=== PATIENT | female | born 1995 | race Caucasian/White ===

== ENCOUNTER 2020-11-06 06:40 | Emergency (ER) | payer BC, SELFPAY ==
[2020-11-06 06:48] VITALS: BP 120/75; PULSE 89; RESP 18; TEMP 36.9; O2SAT 97
[2020-11-06 08:08] LABS: Anion Gap 12 mmol/L (8-16); Blood Urea Nitrogen 7 mg/dL (7-17); Calcium 8.4 mg/dL (8.4-10.2); Carbon Dioxide 26 mmol/L (22-30); Chloride 103 mmol/L (98-107); Estimated CRCL calculation 138 ml/min; Estimated Glomerular Filt Rate > 60; Glucose 95 mg/dL (65-110); Magnesium 2.1 mg/dL (1.6-2.3); Potassium 3.8 mmol/L (3.4-5.0); Sodium 141 mmol/L (137-145)
--- NOTE | 2020-11-06 08:33 | ED.GENADULT ---
HPI - General Adult General Chief complaint: Unspecified Stated complaint: toes numb/ covid + Time Seen by Provider: 11/06/20 07:06 History of Present Illness HPI narrative: Patient is a 25-year-old female who presents ER with paresthesias to her right shoulder and the toes of her left foot. Ongoing since waking up this morning. Reports she got out of bed and felt wobbly for 6 steps but has been normal since then. She reports she has had Covid symptoms for 10 days but was just tested 5 days ago. No longer having fevers or chills. She does still have a cough. No difficulty breathing. She has no functional weakness or dizziness. Related Data Allergies Allergy/AdvReac Type Severity Reaction Status Date / Time Sulfa (Sulfonamide Allergy Hives Verified 11/06/20 06:59 Antibiotics) Review of Systems Review of Systems: All systems reviewed & are unremarkable except as noted in HPI and below Constitutional: Constitutional: Denies chills, Denies fever(s) and Denies malaise ENT: Denies nasal congestion and Denies sore throat Respiratory: Respiratory: Reports cough, Denies dyspnea and Denies wheezing Musculoskeletal: Musculoskeletal: Denies arthralgias, Denies muscle cramps, Denies muscle weakness and Reports tingling PMFSH Past Medical History Medical History (Updated 11/06/20 @ 09:14 by Endy Lopez MD) Healthy female adult Surgical History Surgical History (Updated 11/06/20 @ 09:09 by Endy Lopez MD) No history of previous surgery Social History Social History (Updated 11/06/20 @ 09:09 by Endy Lopez MD) Smoking status: Never smoker Exam Narrative: GENERAL: Well-appearing, well-nourished, and in no acute distress. HEAD: Normocephalic, atraumatic. CHEST: Clear to auscultation. No respiratory distress. HEART: Regular rate and rhythm. Normal peripheral pulses. EXTREMITIES: Normal range of motion. No edema. 5 out of 5 strength in upper and lower extremities. Back: No reproducible midline tenderness of the C/T/L-spine. No reproducible paraspinal muscular tenderness. SKIN: Warm, dry, no rash. NEURO: Alert and oriented x3. Normal reflexes in lower extremities. Sharp sensation intact throughout upper and lower extremities. PSYCH: Normal mood and affect. Course Course Emergency Course: No discernible neurologic deficit or muscle weakness. Will treat with anti-inflammatories. Recommend follow-up with PCP. Vital Signs Vital signs: Vital Signs Temperature 98.4 F 11/06/20 06:48 Pulse Rate 89 11/06/20 06:48 Respiratory Rate 18 11/06/20 06:48 Blood Pressure 120/75 11/06/20 06:48 Pulse Oximetry 97 11/06/20 06:48 Temperature 98.4 F 11/06/20 06:48 Pulse Rate 89 11/06/20 06:48 Respiratory Rate 18 11/06/20 06:48 Blood Pressure 120/75 11/06/20 06:48 Pulse Oximetry 97 11/06/20 06:48 Medical Decision Making Vital Signs Vital Signs: Vital Signs Temperature 98.4 F 11/06/20 06:48 Pulse Rate 89 11/06/20 06:48 Respiratory Rate 18 11/06/20 06:48 Blood Pressure 120/75 11/06/20 06:48 Pulse Oximetry 97 11/06/20 06:48 Temperature 98.4 F 11/06/20 06:48 Pulse Rate 89 11/06/20 06:48 Respiratory Rate 18 11/06/20 06:48 Blood Pressure 120/75 11/06/20 06:48 Pulse Oximetry 97 11/06/20 06:48 Lab Data Result diagrams: 11/06/20 07:47 Labs: Lab Results 11/06/20 Range/Units 07:47 Sodium 141 (137-145) mmol/L Potassium 3.8 (3.4-5.0) mmol/L Chloride 103 (98-107) mmol/L Carbon Dioxide 26 (22-30) mmol/L Anion Gap 12 (8-16) mmol/L BUN 7 (7-17) mg/dL Creatinine 0.60 L (0.7-1.0) mg/dL Estim Creat Clear Calc 138 ml/min Estimated GFR > 60 (59 - ) Glucose 95 (65-110) mg/dL Calcium 8.4 (8.4-10.2) mg/dL Magnesium 2.1 (1.6-2.3) mg/dL Discharge Plan Discharge Clinical Impression: Paresthesia Patient Disposition: Home, Self-Care Condition: Stable Instructions:
== END 2020-11-06 09:42 | disposition home or self-care (01) ==
PROVIDERS: Emergency Provider Emergency Medicine
DX: R20.2 Paresthesia of skin (principal)
CPT/HCPCS: 36415; 80048; 83735; 99283

== ENCOUNTER 2022-04-07 11:17 | Outpatient (CLI) | payer BC, SELFPAY | END 2022-04-07 11:18 | disposition home or self-care (01) | LOC: ANHLAB 11:18 | PROVIDERS: Visit Provider Obstetrics & Gynecology | DX: O20.0 Threatened abortion (principal) | CPT/HCPCS: 36415; 84702 ==

== ENCOUNTER 2022-04-09 10:47 | Outpatient (CLI) | payer BC, SELFPAY | END 2022-04-09 10:48 | disposition home or self-care (01) | PROVIDERS: Visit Provider Obstetrics & Gynecology | DX: O20.0 Threatened abortion (principal) | CPT/HCPCS: 36415; 84702 ==

== ENCOUNTER 2022-05-05 10:37 | Outpatient (CLI) | payer BC, SELFPAY ==
[2022-05-05 11:57] LABS: Basophils Percent Auto 0.6 % (0.2-1.2); Eosinophils Absolute Auto 0.1 K/mm3 (0-0.3); Eosinophils Percent Auto 2.1 % (0-4.4); Hematocrit 41.5 % (37.0-47.0); Immature Granulocyte Absolute 0.02 K/mm3 (0.00-0.031); Immature Granulocyte Percent A 0.3 % (0-0.5); Lymphocytes Absolute Auto 2.02 K/mm3 (0.9-3.2); Lymphocytes Percent Auto 29.8 % (18.3-44.2); Mean Corpuscular HGB Conc 33.7 g/dl (32-36); Mean Corpuscular Hemoglobin 28.9 pg (26-34); Mean Corpuscular Volume 85.6 fl (80-100); Mean Platelet Volume 10.6 fl (7.4-10.4); Monocytes Absolute Auto 0.4 K/mm3 (0.1-0.6); Monocytes Percent Auto 5.9 % (2.6-8.5); Neutrophils Absolute Auto 4.2 K/mm3 (1.3-6.7); Neutrophils Percent Auto 61.3 % (45.5-73.1); Platelet Count Result 212 k/mm3 (150-375); Red Blood Count 4.85 M/mm3 (4.2-5.4); Red Cell Distribution Width 12.8 % (11.5-14.5); White Blood Count 6.8 K/mm3 (4.5-10.0)
[2022-05-05 12:24] LABS: Glucose 1 Hour PP 50gm Dose 138 mg/dL
[2022-05-05 12:49] LABS: HIV 1/2 Ab P24 Ag Result Negative (Negative)
[2022-05-05 13:16] LABS: Hepatitis B Surface Antigen Negative (Negative)
[2022-05-06 06:35] LABS: Rapid Plasma Reagin Non-Reactive (NonReactive)
[2022-05-08 14:32] LABS: CMV IgG Antibody <0.60 U/mL (<0.60)
[2022-05-14 16:03] LABS: CF Result NEGATIVE (NEGATIVE); Ethnicity W
[2022-05-16 12:13] LABS: SMA 2.0 RISK VARIANT NOT DETECTED
[2022-05-16 13:16] LABS: SMA Results Received Yes
== END 2022-05-05 10:38 | disposition home or self-care (01) ==
LOC: ANHLAB 10:38
PROVIDERS: Visit Provider Student in an Organized Health Care Education/Training Program
DX: N94.89 Other specified conditions associated with female genital organs and menstrual cycle (principal)
CPT/HCPCS: 36415; 81220; 81329; 82947; 84702; 85025; 86592; 86644; 86703; 86747; 86762; 86787; 86850; 86900; 86901; 87086; 87340; G0432

== ENCOUNTER 2022-05-14 08:23 | Emergency (ER) | payer BC, SELFPAY ==
--- NOTE | ~2022-05-14 | US_ITS ---
US OB <=14 wk fetus w TV DATE: 05/14/2022 09:49 INDICATION: Vaginal bleeding TECHNIQUE: Real-time imaging and Doppler analysis COMPARISON: 05/05/2022 obstetrical ultrasound FINDINGS: The uterus measures 11.1 cm height, 7 cm transverse and 5.8 cm anteroposterior dimension. L glenis cai intrauterine gestation. Subjectively normal amount of amniotic fluid. Posterior placent a. Fetus in transverse lie. heart rate of 155 bpm. No retroplacental hematoma or subchorionic hemorrhage is evident. Right ovary measures 2.9 x 2.3 x 1.4 cm. Left ovary measures 2.4 x 2.6 x 1.8 cm. No pelvic mass or abnormal pelvic free fluid collection is detected. IMPRESSION: No abruption or subchorionic hematoma is detected Reviewed, dictated and finalized at [facility]. Reviewed, dictated and finalized at [facility].
[2022-05-14 08:28] VITALS: BP 147/89; PULSE 106; RESP 18; TEMP 36.6; O2SAT 99
--- NOTE | 2022-05-14 08:46 | ED.PREGNANCY ---
HPI - General Chief complaint: Vaginal Bleeding Stated complaint: 11 weeks preg/vb Time Seen by Provider: 05/14/22 08:46 Source: patient, RN notes reviewed and old records reviewed Mode of arrival: ambulatory Limitations: no limitations History of Present Illness HPI Narrative: This is a 26 year old female 11 weeks GA who presents for evaluation of vaginal bleeding. PAtient states she has been having vaginal spotting off and on since her 5th week GA. She has had 2 US and her last US was over 1 week ago. She woke up this morning with heaving vaginal bleeding and passed small clot. She denies abdominal pain, cramping, UTI symptoms or fever. Her OB is Dr. Arias but she has been seeing Dr. Redd and Magda Related Data Home Medications Medication Instructions Recorded Confirmed No Home Medications 12/05/21 12/05/21 Allergies Allergy/AdvReac Type Severity Reaction Status Date / Time Sulfa (Sulfonamide Allergy Hives Verified 04/28/22 09:31 Antibiotics) Review of Systems Review of Systems: All systems reviewed & are unremarkable except as noted in HPI and below Constitutional: Constitutional: Denies weakness Cardiovascular: Cardiovascular: Denies syncope, Denies rapid heart rate, Denies irregular heart rhythm, Denies leg edema and Denies dyspnea Respiratory: Respiratory: Denies chest congestion, Denies hemoptysis, Denies excessive phlegm production and Denies dyspnea Gastrointestinal: Gastrointestinal: Denies abdominal pain, Denies hematochezia, Denies diarrhea and Denies vomiting Genitourinary: Genitourinary: Reports abnormal vaginal bleeding, Denies hematuria and Denies dysuria Musculoskeletal: Musculoskeletal: Denies joint swelling, Denies loss of height and Denies muscle weakness Neurologic: Denies syncope, Denies focal weakness and Denies weakness [facility] Past Medical History Medical History (Updated 05/14/22 @ 16:19 by Arielle Sevilla MA) Blood glucose abnormal Encounter for insertion of mirena IUD (11/04/17) 2018 Encounter for IUD removal (12/05/21) 12/05/2021 Healthy female adult Suppression of menses Surgical History Surgical History No history of previous surgery Social History Social History Smoking status: Never smoker Alcohol intake: never Substance use: never Living arrangements: with family 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/Education: 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 Gender identity (if verbalized by the patient): Female Sexual Orientation (if Verbalized by the Patient): Straight or Heterosexual Exam Const: General: no acute distress and alert Nutritional Appearance: well nourished Orientation/consciousness: patient oriented x3 Limitations: no limitations Eyes: EOM: EOMs intact bilaterally Resp: Effort & Inspection: normal respiratory effort Auscultation: clear to auscultation bilaterally Cardio: Rate: regular rate Rhythm: regular rhythm Heart sounds: no murmurs GI: GI Palp: Yes Soft to palpation, No Tenderness to palpation present (GI), No Guarding due to palpation present (GI) and No Rigid due to palpation Auscultation: normal bowel sounds : Speculum Exam - Vagina: vaginal bleeding (no clots) Speculum Exam - Cervix: Cervical os closed Back/Spine/Pelvis: Back: no CVA tenderness Skin: General skin exam: normal color Rashes: no rashes Wounds: no wounds Neuro: General: patient oriented x3, moves all extremities and CN's II-XI intact bilaterally Extrem: General: normal to inspection Psych: Mental Status: mental status grossly normal Affect: normal affect Attitude: cooperative Course Reevaluation(s) Reevaluation #1: Patient reports her bleeding has decreased. I Discussed US results. Discharge plan with pelvic rest and follow up . She has appointment on May 26 Date: 05/14/22 Time: 10:49 Vital Signs Maria C
[2022-05-14 09:06] VITALS: PULSE 94; RESP 19; O2SAT 98
[2022-05-14 09:06] LABS: Basophils Percent Auto 0.6 % (0.2-1.2); Eosinophils Absolute Auto 0.1 K/mm3 (0-0.3); Eosinophils Percent Auto 1.6 % (0-4.4); Hematocrit 38.8 % (37.0-47.0); Hemoglobin 13.4 g/dL (12.0-15.0); Immature Granulocyte Absolute 0.03 K/mm3 (0.00-0.031); Immature Granulocyte Percent A 0.4 % (0-0.5); Lymphocytes Absolute Auto 1.67 K/mm3 (0.9-3.2); Mean Corpuscular HGB Conc 34.5 g/dl (32-36); Mean Corpuscular Hemoglobin 28.5 pg (26-34); Mean Corpuscular Volume 82.4 fl (80-100); Mean Platelet Volume 10.7 fl (7.4-10.4); Monocytes Absolute Auto 0.4 K/mm3 (0.1-0.6); Monocytes Percent Auto 5.3 % (2.6-8.5); Neutrophils Absolute Auto 4.8 K/mm3 (1.3-6.7); Neutrophils Percent Auto 68.1 % (45.5-73.1); Platelet Count Result 193 k/mm3 (150-375); Red Blood Count 4.71 M/mm3 (4.2-5.4); Red Cell Distribution Width 12.6 % (11.5-14.5)
[2022-05-14 10:32] VITALS: BP 118/67
[2022-05-14 10:33] VITALS: BP 113/77
[2022-05-14 10:34] VITALS: BP 124/86
[2022-05-14 11:00] VITALS: BP 120/97; PULSE 84; RESP 15; TEMP 36.6; O2SAT 97
== END 2022-05-14 11:02 | disposition home or self-care (01) ==
PROVIDERS: Emergency Provider General Practice; PCP Obstetrics & Gynecology
DX: O46.91 Antepartum hemorrhage, unspecified, first trimester (principal); Z3A.11 11 weeks gestation of pregnancy
CPT/HCPCS: 36415; 76801; 76817; 84702; 85025; 85461; 86850; 86900; 86901; 99284

== ENCOUNTER 2022-05-19 07:26 | Outpatient (CLI) | payer BC, SELFPAY ==
[2022-05-19 08:07] LABS: Glucose Fasting Gestational 95 mg/dL (>/=95)
[2022-05-19 11:44] LABS: Glucose 1 Hour Gest 135 mg/dL (>/=180)
[2022-05-19 11:46] LABS: Glucose 2 Hour Gest 119 mg/dL (>/= 155)
[2022-05-19 11:50] LABS: Glucose 3 Hour Gest 71 mg/dL (>/=140)
== END 2022-05-19 07:27 | disposition home or self-care (01) ==
LOC: ANHLAB 07:27
PROVIDERS: PCP Obstetrics & Gynecology; Visit Provider Student in an Organized Health Care Education/Training Program
DX: R73.09 Other abnormal glucose (principal)
CPT/HCPCS: 36415; 82951; 82952

== ENCOUNTER 2022-09-17 09:01 | Outpatient (CLI) | payer BC, SELFPAY ==
[2022-09-17 10:27] LABS: Basophils Absolute Auto 0.1 K/mm3 (0.0-0.1); Basophils Percent Auto 0.6 % (0.2-1.2); Eosinophils Absolute Auto 0.2 K/mm3 (0-0.3); Eosinophils Percent Auto 2.1 % (0-4.4); Hematocrit 35.8 % (37.0-47.0); Hemoglobin 11.9 g/dL (12.0-15.0); Immature Granulocyte Absolute 0.04 K/mm3 (0.00-0.031); Immature Granulocyte Percent A 0.5 % (0-0.5); Lymphocytes Absolute Auto 1.75 K/mm3 (0.9-3.2); Mean Corpuscular HGB Conc 33.2 g/dl (32-36); Mean Corpuscular Hemoglobin 28.5 pg (26-34); Mean Corpuscular Volume 85.6 fl (80-100); Mean Platelet Volume 11.5 fl (7.4-10.4); Monocytes Absolute Auto 0.4 K/mm3 (0.1-0.6); Monocytes Percent Auto 4.6 % (2.6-8.5); Neutrophils Absolute Auto 6.4 K/mm3 (1.3-6.7); Neutrophils Percent Auto 72.2 % (45.5-73.1); Platelet Count Result 193 k/mm3 (150-375); Red Blood Count 4.18 M/mm3 (4.2-5.4); Red Cell Distribution Width 13.9 % (11.5-14.5); White Blood Count 8.8 K/mm3 (4.5-10.0)
[2022-09-17 10:36] LABS: Glucose 1 Hour PP 50gm Dose 132 mg/dL
[2022-09-17 11:17] LABS: HIV 1/2 Ab P24 Ag Result Negative (Negative)
== END 2022-09-17 09:02 | disposition home or self-care (01) ==
LOC: ANHLAB 09:02
PROVIDERS: Visit Provider Obstetrics & Gynecology
DX: Z34.90 Encounter for supervision of normal pregnancy, unspecified, unspecified trimester (principal)
CPT/HCPCS: 36415; 82947; 85025; 86703; G0432

== ENCOUNTER 2022-10-31 02:46 | Inpatient (IN) | payer BC, SELFPAY ==
[2022-10-31] VITALS (69 sets, daily range): BP systolic 92–142; BP diastolic 49–102; PULSE 52–199; RESP 16; TEMP 35.9–36.6; O2SAT 99–100; BMI 40.0
[2022-10-31] MEDS: LACTATED RINGERS 1,000 ML 125 ML IV CONT (04:24)
[2022-10-31] MEDS: AMPICILLIN 2 GM/NS 100 ML 2 GM/100 ML BAG IVPB (04:24)
[2022-10-31 04:37] LABS: Basophils Percent Auto 0.4 % (0.2-1.2); Eosinophils Absolute Auto 0.3 K/mm3 (0-0.3); Eosinophils Percent Auto 2.7 % (0-4.4); Hematocrit 36.6 % (37.0-47.0); Hemoglobin 12.1 g/dL (12.0-15.0); Immature Granulocyte Absolute 0.06 K/mm3 (0.00-0.031); Immature Granulocyte Percent A 0.6 % (0-0.5); Lymphocytes Absolute Auto 2.41 K/mm3 (0.9-3.2); Mean Corpuscular HGB Conc 33.1 g/dl (32-36); Mean Corpuscular Hemoglobin 27.8 pg (26-34); Mean Corpuscular Volume 83.9 fl (80-100); Monocytes Absolute Auto 0.6 K/mm3 (0.1-0.6); Monocytes Percent Auto 6.2 % (2.6-8.5); Neutrophils Absolute Auto 6.7 K/mm3 (1.3-6.7); Neutrophils Percent Auto 66.1 % (45.5-73.1); Platelet Count Result 182 k/mm3 (150-375); Red Blood Count 4.36 M/mm3 (4.2-5.4); Red Cell Distribution Width 14.3 % (11.5-14.5); White Blood Count 10.1 K/mm3 (4.5-10.0)
--- NOTE | 2022-10-31 04:45 | LDADM ---
This patient, Beatriz Ramos, was admitted to Labor/Delivery/Recovery 104 on 10/31/22 at 02:46. Plans for labor, pain management and were discussed with patient. Patient/family oriented to hospital policies and general routines including ID bracelet, bed and alarms, visiting hours, pain management, procedures, bathroom and other care routines, personal items, smoking policy, room service/diet and guest tray routines, infant security routines, and visiting hours. Patient/Family are encouraged to report perceived risks to care and to ask questions if they do not understand what they are told or what they should do. See OBIX for further documentation.
--- NOTE | 2022-10-31 05:29 | WPDANESEPP ---
Anes - Eval Pre Procedure Procedure: labor epidural Date/Time: 10/31/22 05:29 Surgeon: regi Preop Diagnosis: pain during labor Pre Op Diagnosis: Leaking Patient Data Age: 27 Gender: F Height: 1.65 m Weight: 109.1 kg Last Vital Signs Pulse 89 10/31/22 04:01 BP 124/73 10/31/22 04:01 O2 Del Method Room Air 10/31/22 04:38 Allergies Allergy/AdvReac Type Severity Reaction Status Date / Time Sulfa (Sulfonamide Allergy Hives Verified 10/31/22 04:58 Antibiotics) Home Medications Medication Instructions Recorded Confirmed Type No Home Medications 12/05/21 10/20/22 History Laboratory Tests 10/31/22 03:52 WBC 10.1 H K/mm3 (4.5-10.0) RBC 4.36 M/mm3 (4.2-5.4) Hgb 12.1 g/dL (12.0-15.0) Hct 36.6 L % (37.0-47.0) MCV 83.9 fl (80-100) MCH 27.8 pg (26-34) MCHC 33.1 g/dl (32-36) RDW 14.3 % (11.5-14.5) Plt Count 182 k/mm3 (150-375) MPV 12.0 H fl (7.4-10.4) Immature Gran % (Auto) 0.6 H % (0-0.5) Neut % (Auto) 66.1 % (45.5-73.1) Lymph % (Auto) 24.0 % (18.3-44.2) [place] % (Auto) 6.2 % (2.6-8.5) Eos % (Auto) 2.7 % (0-4.4) Baso % (Auto) 0.4 % (0.2-1.2) Lymph # (Auto) 2.41 K/mm3 (0.9-3.2) [place] # (Auto) 0.6 K/mm3 (0.1-0.6) Eos # (Auto) 0.3 K/mm3 (0-0.3) Baso # (Auto) 0.0 K/mm3 (0.0-0.1) Abs Immat Gran (auto) 0.06 H K/mm3 (0.00-0.031) Absolute Neuts (auto) 6.7 K/mm3 (1.3-6.7) Absolute Nucleated RBC 0.0 K/mm3 (0.0-0.012) Nucleated RBC % 0.0 % (0.0-0.2) RPR Pending Blood Type B Positive Antibody Screen Negative Patient hx anesthesia problems: none Family hx anesthesia problems: none Results Review: All pre-operative results and documents have been reviewed as part of the pre-operative evaluation. [facility] Past Medical History Medical History (Updated 10/31/22 @ 05:30 by Brandee Ching CRNA) Blood glucose abnormal Encounter for insertion of mirena IUD (11/04/17) 2018 Encounter for IUD removal (12/05/21) 12/05/2021 Healthy female adult Morbid obesity with BMI of 50.0-59.9, adult Suppression of menses Surgical History Surgical History No history of previous surgery Social History Social History Smoking status: Never smoker Alcohol intake: never Substance use: never Lack of Transportation: No Lack of Food: Never True Current Housing: I Have Housing Concerned About Future Housing: No Difficulty Paying Gas/Electric Bills: No Difficulty Paying for Meds: No Currently Unemployed: No Education: Master's Degree or Higher Difficulty w/ Childcare or Family Care: No Living arrangements: with family Additional living arrangements comments: Occupation/Education: 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
[2022-10-31] MEDS: miSOPROStol 25 MCG TABLET 50 MCG PO (08:04)
[2022-10-31] MEDS: BETAMETHASONE SOD PHOS/ACETATE 30 MG/5 ML VIAL 12 MG IM (08:05)
--- NOTE | 2022-10-31 08:08 | PM.IMHP ---
H&P: HPI History of Present Illness Date/Time: 10/31/22 08:08 Chief Complaint: pre term premature rupture of membranes Narrative: a 27-year-old who presents at 35 weeks 1 day with complaint of leakage of fluid. Patient states woke at 0230 in the morning and had a large gush of fluid. Patient states she continues to have leakage of fluid during her admission. Patient denies any contractions. She denies any abdominal pain, fever. She reports good movement. Her has been uncomplicated thus far. Review of Systems Cardiovascular: Cardiovascular: Denies chest pain, Denies leg edema, Denies palpitations, Denies dyspnea and Denies dyspnea on exertion Respiratory: Respiratory: Denies cough, Denies dyspnea and Denies dyspnea on exertion Gastrointestinal: Gastrointestinal: Denies abdominal pain, Denies constipation, Denies diarrhea, Denies nausea and Denies vomiting Genitourinary: Genitourinary: Denies hematuria, Denies urinary frequency, Denies dysuria, Denies pelvic pain, Denies urinary incontinence and Denies vaginal discharge Neurologic: Reports system reviewed and no additional complaints, except as documented Psychiatric: Psychiatric: Reports no additional psychiatric complaints Endocrine: Endocrine: Denies palpitations PMFSH Past Medical History Medical History (Updated 10/31/22 @ 08:12 by Chris Man MD) Blood glucose abnormal Encounter for insertion of mirena IUD (11/04/17) 2018 Encounter for IUD removal (12/05/21) 12/05/2021 Healthy female adult Morbid obesity with BMI of 50.0-59.9, adult Suppression of menses Surgical History Surgical History No history of previous surgery Social History Social History Smoking status: Never smoker Alcohol intake: never Substance use: never Lack of Transportation: No Lack of Food: Never True Current Housing: I Have Housing Concerned About Future Housing: No Difficulty Paying Gas/Electric Bills: No Difficulty Paying for Meds: No Currently Unemployed: No Education: Master's Degree or Higher Difficulty w/ Childcare or Family Care: No Living arrangements: with family Additional living arrangements comments: 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/Education: 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 Gender identity (if verbalized by the patient): Female Sexual Orientation (if Verbalized by the Patient): Straight or Heterosexual Spiritual care concerns: No Meds Home Medications and Allergies Home Medications Medication Instructions Recorded Confirmed Type No Home Medications 12/05/21 10/20/22 History Allergies Allergy/AdvReac Type Severity Reaction Status Date / Time Sulfa (Sulfonamide Allergy Hives Verified 10/31/22 04:58 Antibiotics) Vital Signs Vital Signs - 24 hr 10/31/22 04:01 10/31/22 06:01 10/31/22 03:01 Temperature 96.7 F L Pulse Rate 89 76 Blood Pressure 124/73 131/74 Oxygen Delivery 10/31/22 05:05 10/31/22 07:01 10/31/22 07:20 Temperature 96.8 F L 97.2 F L Pulse Rate 96 Blood Pressure 128/75 Oxygen Delivery 10/31/22 08:02 10/31/22 04:38 Temperature Pulse Rate 91 Blood Pressure 111/71 Oxygen Delivery Room Air Exam Const: General: no acute distress Eyes: EOM: EOMs intact bilaterally Neck: Neck: supple Thyroid: thyroid normal Chest: Breast/axilla inspection: normal inspection of the breasts Breast/axilla palpation: normal palpation of the breasts, normal palpation of the axillae and no axillary lymphadenopathy Resp: Effort & Inspection: normal respiratory effort Auscultation: clear to auscultation bilaterally Cardio: Rate: regular rate Rhythm: regular rhythm GI: Inspection: non-distended and other (Gravid) GI Palp: Yes Soft to palpation, No Tenderness to palpation present (GI) and No Guarding due to palpation prese
[2022-10-31] MEDS: AMPICILLIN 1 GM/NS 50 ML 1 GM/50 ML BAG IVPB ×2 (08:44→12:42)
--- NOTE | 2022-10-31 14:00 | PM.OBPRVD ---
OB - Delivery Note Procedure Delivery date: 10/31/22 Procedure: Patient pushed for a spontaneous vaginal delivery. The fetus was delivered atraumatically and placed on the maternal abdomen. The cord was clamped and cut after 1 minute of life. The cord was double clamped and cut and a segment of cord was collected for cord gases. Cord blood was collected for blood type and Coomb's testing. The placenta delivered spontaneously and was noted to be intact. The perineum was inspected and there was a 1st degree perineal laceration. The laceration was repaired with 3-0 vicryl in the usual fashion. The uterus was firm and good hemostasis was noted. The patient and fetus were stable in the delivery room. Events: Premature Rupture of Membranes Induction method: None Delivery augmentation: Pitocin Delivery monitor: External FHT Route of delivery: Episiotomy description: None Laceration Description: Perineal - 1st Degree and Labial (right) Delivery repair: vicryl Specimen: No Quantitative Blood Loss (ml): 150 Anesthesia type: Epidural Disposition: Floor () Complications: No immediate complications [place] Baby Date of : 10/31/22 Time of : 13:44 Weeks of gestation at delivery: 35 Infant gender: Female Weight (pounds): 5 Weight (ounces): 15 presentation: vertex position: Right Occiput Anterior Placenta delivery description: Spontaneous Cord Vessel Description: 3 Vessels score one minute: 9 score five minutes: 7 AMG Delivery Billing Delivery Delivery: Delivery Charge
[2022-10-31] MEDS: OXYTOCIN 30 UNITS/NS 500 ML 30 UNITS/500 ML BAG 125 UNITS IV CONT (14:22)
[2022-10-31 14:59] LABS: Rapid Plasma Reagin Non-Reactive (NonReactive)
[2022-10-31] MEDS: WITCH HAZEL 40 PADS 1 PAD TOPICAL (16:27)
[2022-10-31] MEDS: BENZOCAINE 20% AER SPR (*SP) 56 GM CAN 1 SPRAY TOPICAL (16:27)
[2022-10-31] MEDS: POLYSACCHARIDE IRON COMPLEX 150 MG CAPSULE PO (18:58)
[2022-11-01 04:30] VITALS: BP 127/77; PULSE 65; RESP 18; TEMP 36.8; O2SAT 100; O2SAT 99
[2022-11-01 04:55] LABS: Hematocrit 33.2 % (37.0-47.0); Hemoglobin 10.8 g/dL (12.0-15.0)
--- NOTE | 2022-11-01 07:56 | PM.OBDSVD ---
DS: Admitting Diagnosis Discharge Date 11/01/22 Admitting Diagnosis premature rupture of membranes DS: Discharge Diagnosis Discharge Diagnosis (1) premature rupture of membranes: Code(s): O42.919 - premature rupture of membranes, unspecified as to length of time between rupture and onset of labor, unspecified trimester Status: Acute (2) Supervision of high risk , unspecified, third trimester: Code(s): O09.93 - Supervision of high risk , unspecified, third trimester Status: Acute OB - DS: Summary OB Procedures : None OB Procedures Intrapartum: Spontaneous Vag Delivery OB Procedures: : None Status at Discharge Functional status at discharge: independent ambulation Overall status at discharge: patient is back to baseline Time Spent with Patient Time attestation: Total time spent providing and/or coordinating discharge services: Time spent: Less than 30 minutes Exam Const: General: comfortable and no acute distress Resp: Effort & Inspection: normal respiratory effort Auscultation: clear to auscultation bilaterally Cardio: Rate: regular rate GI: GI Palp: Yes Soft to palpation Auscultation: normal bowel sounds Other: Fundus firm below umbilicus Psych: Appearance: grossly normal Mental Status: mental status grossly normal Affect: normal affect DS: Data Data Completed and Pending Labs on day of discharge: Labs from last 24 hours 11/01/22 10/31/22 04:39 03:52 Hgb 10.8 L Hct 33.2 L RPR Non-reactive Discharge Plan Discharge Discharging Clinician: Chris Man Patient Disposition: Home, Self-Care Activity: as tolerated and pelvic rest Diet: regular Patient Instructions: Antibiotic Form, Vaginal Delivery (DC) Stand Alone Forms: General Discharge Information Follow-up/Referrals: Chris Man MD [Physician] - Discharge Medications: New acetaminophen 500 mg tablet 500 mg PO Q6H PRN (Reason: pain) Qty: 30 0RF ibuprofen 600 mg tablet 600 mg PO Q6H PRN (Reason: pain) Qty: 30 0RF No Action No Home Medications Date of admission: 10/31/22 02:46 Primary Care Provider: PHYSICIAN,POULTRY CLEANER Admitting Provider: Jessica Arias Attending physician on admission: Jessica Arias Condition: Stable
[2022-11-01 09:20] VITALS: BP 121/62; PULSE 85; RESP 16; TEMP 36.5; O2SAT 100
[2022-11-01] MEDS: DOCUSATE SODIUM 100 MG CAPSULE PO (09:21)
[2022-11-01] MEDS: MULTIVIT/MIN/PREN/FOL AC/IRON TABLET 1 TAB PO (09:21)
[2022-11-01] MEDS: MEASLES,MUMPS,RUBELLA VACCINE 0.5 ML VIAL SUB-Q (09:31)
== END 2022-11-01 11:35 | disposition home or self-care (01) | DRG 807 ==
LOC: ANHOB2 11-01 10:08 → ANHLDR 11-04 09:13 → ANHOB2 11-04 09:13
PROVIDERS: Admitting Provider Obstetrics & Gynecology; Visit Provider Student in an Organized Health Care Education/Training Program
DX: O42.913 Preterm premature rupture of membranes, unspecified as to length of time between rupture and onset of labor, third trimester (principal); Z37.0 Single live birth; O70.0 First degree perineal laceration during delivery; Z3A.35 35 weeks gestation of pregnancy
CPT/HCPCS: 36415; 84112; 85014; 85018; 85025; 86592; 86850; 86900; 86901; 88307; 90710; A9270; J0290; J0702; J2590; J2795; J7120

== ENCOUNTER 2023-09-10 13:08 | Outpatient (CLI) | payer BC, SELFPAY ==
--- NOTE | ~2023-09-10 | US_ITS ---
EXAMINATION: US OB <=14 wk fetus w TV DATE: 09/10/2023 13:45 INDICATION: Threatened with spotting during first trimester of . TECHNIQUE: Real-time pelvic ultrasound utilizing both a transvaginal and transabdominal probe was pe rformed. The interpreting radiologist was not present for the study. COMPARISON: None. FINDINGS: The likely bicornuate uterus measures 8.9 x 4.6 x 3.6 cm. There is an intrauterine gestational sac i n the right uterine horn. A yolk sac and pole are identified. The crown rump length measures 1. 2 cm, which correlates with an estimated gestational age of 7 weeks and 3 days. heart motion is identified measuring 156 beats per minute (bpm) by M-mode Doppler. Thickened endometrial complex junie suring 18 mm in the left uterine horn. The right ovary measures 3.5 x 2.1 x 2.0 cm. The left ovary measures 2.9 x 2.2 x 2.1 cm. There is no free fluid in the pelvis. IMPRESSION: 1. 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 2. Gestational age by ultrasound of 7 weeks 3 day(s) +/- 5 day(s) with ultrasound estimated date of d elivery ([facility]) of 04/25/2024. Reviewed, dictated and finalized at location [facility]. IMPRESSION: 1. 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 2. Gestational age by ultrasound of 7 weeks 3 day(s) +/- 5 day(s) with ultrasou nd estimated date of delivery ([facility]) of 04/25/2024.
== END 2023-09-10 13:09 ==
PROVIDERS: PCP Obstetrics & Gynecology; Visit Provider Obstetrics & Gynecology
DX: O20.0 Threatened abortion (principal); Z3A.00 Weeks of gestation of pregnancy not specified
CPT/HCPCS: 76801; 76817

== ENCOUNTER 2023-09-15 09:07 | Outpatient (CLI) | payer BC, SELFPAY ==
[2023-09-15 15:52] LABS: Basophils Percent Auto 0.5 % (0.2-1.2); Eosinophils Absolute Auto 0.1 K/mm3 (0-0.3); Eosinophils Percent Auto 1.9 % (0-4.4); Hematocrit 39.4 % (37.0-47.0); Hemoglobin 12.5 g/dL (12.0-15.0); Immature Granulocyte Absolute 0.02 K/mm3 (0.00-0.031); Immature Granulocyte Percent A 0.3 % (0-0.5); Lymphocytes Absolute Auto 1.52 K/mm3 (0.9-3.2); Lymphocytes Percent Auto 23.9 % (18.3-44.2); Mean Corpuscular HGB Conc 31.7 g/dl (32-36); Mean Corpuscular Hemoglobin 26.3 pg (26-34); Mean Corpuscular Volume 82.8 fl (80-100); Mean Platelet Volume 11.4 fl (7.4-10.4); Monocytes Absolute Auto 0.3 K/mm3 (0.1-0.6); Monocytes Percent Auto 4.2 % (2.6-8.5); Neutrophils Absolute Auto 4.4 K/mm3 (1.3-6.7); Neutrophils Percent Auto 69.2 % (45.5-73.1); Platelet Count Result 255 k/mm3 (150-375); Red Blood Count 4.76 M/mm3 (4.2-5.4); Red Cell Distribution Width 14.6 % (11.5-14.5); White Blood Count 6.4 K/mm3 (4.5-10.0)
[2023-09-15 16:50] LABS: Glucose 1 Hour PP 50gm Dose 125 mg/dL
[2023-09-15 18:40] LABS: HIV 1/2 Ab P24 Ag Result Negative (Negative)
[2023-09-15 19:16] LABS: Hepatitis B Surface Antigen Negative (Negative); Rubella IgG Antibody 12.3 IU/ML
[2023-09-15 19:30] LABS: Hemoglobin A1C 5.3 % (<5.7)
[2023-09-16 11:56] LABS: Rapid Plasma Reagin Non-Reactive (NonReactive)
[2023-09-17 14:08] LABS: CMV IgG Antibody <0.60 U/mL
== END 2023-09-15 09:08 | disposition home or self-care (01) ==
LOC: ANHGOSHLAB 09:08
PROVIDERS: PCP Obstetrics & Gynecology; Visit Provider Obstetrics & Gynecology
DX: Z34.90 Encounter for supervision of normal pregnancy, unspecified, unspecified trimester (principal); N91.2 Amenorrhea, unspecified
CPT/HCPCS: 36415; 82947; 83036; 84443; 84702; 85025; 86592; 86644; 86703; 86747; 86762; 86787; 86850; 86900; 86901; 87086; 87088; 87340; G0432

== ENCOUNTER 2023-09-22 18:26 | Emergency (ER) | payer BC, SELFPAY ==
--- NOTE | ~2023-09-22 | US_ITS ---
EXAMINATION: US OB transvaginal DATE: 09/22/2023 20:37 INDICATION: Vaginal bleeding and passing clots during first trimester TECHNIQUE: Real-time pelvic ultrasound utilizing both a transvaginal and transabdominal probe was pe rformed. The interpreting radiologist was not present for the study. COMPARISON: None. FINDINGS: The uterus measures 11.2 x 5.4 x 7.8 cm. There is an intrauterine gestational sac. A yolk sac and fe deysi pole are identified. The crown rump length measures 2.5 cm, which correlates with an estimated ge stational age of 9 weeks and 2 days. heart motion is identified measuring 173 beats per minute (bpm) by M-mode Doppler. Trace amount fluid within the endocervical canal. Cervical length measures 3 .9 cm which is normal. No evident subchorionic hematoma. The right ovary measures 2.8 x 2.3 x 1.9 cm. Suggestion of a 2.1 x 1.7 cm thick-walled centrally anec hoic corpus luteum cyst in the right ovary. The left ovary measures 3.6 x 2.1 x 2.3 cm. Vascular flow identified in both ovaries on color Doppler. There is no free fluid in the pelvis. IMPRESSION: 1. Single living fetus with heart rate of 173 bpm. 2. Gestational age by ultrasound of 9 weeks 2 day(s) +/- 6 day(s) with ultrasound estimated date of delivery (RICK) of 04/24/2024. Reviewed, dictated and finalized at location A. IMPRESSION: 1. Single living fetus with heart rate of 173 bpm. 2. Gestational age by ultrasound of 9 weeks 2 day(s) +/- 6 day(s) with ultraso und estimated date of delivery (RICK) of 04/24/2024.
[2023-09-22 18:39] VITALS: BP 109/77; PULSE 108; RESP 16; TEMP 36.8; O2SAT 100
--- NOTE | 2023-09-22 18:47 | ED.PREGNANCY ---
HPI - General Chief complaint: Vaginal Bleeding <JEAN Jeffrey Last Filed: 09/22/23 18:52> Stated complaint: vaginal bleeding 9 weeks <JEAN Jeffrey Last Filed: 09/22/23 18:52> Time Seen by Provider: 09/22/23 18:47 <JEAN Jeffrey Last Filed: 09/22/23 18:52> Focused HPI: Patient is a 28 y/o female who presents to the ED with c/o vaginal bleeding. Patient is and approx 9 weeks gestation. She has had US confirming IUP for this at 7 weeks. She has a bicornuate uterus and has had intermittent bleeding throughout her thus far. States bleeding became heavier today and then just prior to arrival, she passed what appeared to be a gestational sac. She was then referred to the ED for further evaluation. She reported mild cramping, but denies significant pain. OBGYN is Dr. Arias. Patient notes she is currently on keflex for a UTI. GENERAL: Well-appearing, well-nourished, and in no acute distress. HEAD: Normocephalic, atraumatic. CHEST: Clear to auscultation. ?No respiratory distress. HEART: Regular rate and rhythm.? NEURO: ?Alert and oriented x3. Patient screened in triage and initial orders placed.? ?Additional care and disposition to be based upon?diagnostic testing and treatment. <JEAN Jeffrey Last Filed: 09/22/23 18:52> Source: patient <JEAN Jeffrey Last Filed: 09/22/23 18:52> Mode of arrival: ambulatory <JEAN Jeffrey Last Filed: 09/22/23 18:52> Limitations: no limitations <JEAN Jeffrey Last Filed: 09/22/23 18:52> History of Present Illness HPI Narrative: Agree with the above triage note. Patient states she has had very light spotting throughout her that is only present when she wipes. She states shortly before passing the large clot in the toilet today she noticed heavier bleeding and saturated her underwear. After she passed a large clot she has had very light bleeding again. States she has not had to wear a pad or tampon. Denies concern for STDs. <Tavia Varela PA-C - Last Filed: 09/22/23 21:53> Related Data Home medications: Home Medications Medication Instructions Recorded Confirmed docosahexaenoic acid 200 mg mg PO 09/10/23 09/10/23 capsule ( DHA) <Kelly Arora PA-C - Last Filed: 09/22/23 18:52> Allergies/Adverse reactions: Allergies Allergy/AdvReac Type Severity Reaction Status Date / Time Sulfa (Sulfonamide Allergy Hives Verified 09/22/23 18:44 Antibiotics) <Kelly Arora PA-C - Last Filed: 09/22/23 18:52> Review of Systems Review of Systems: All systems reviewed & are unremarkable except as noted in HPI and below <Tavia Varela PA-C - Last Filed: 09/22/23 21:53> [facility] Past Medical History Medical History: Medical History Blood glucose abnormal Encounter for insertion of mirena IUD (11/04/17) 2018 Encounter for IUD removal (12/05/21) 12/05/2021 Healthy female adult Morbid obesity with BMI of 50.0-59.9, adult Suppression of menses <Kelly Arora PA-C - Last Filed: 09/22/23 18:52> Surgical History Surgical History: Surgical History No history of previous surgery <Kelly Arora PA-C - Last Filed: 09/22/23 18:52> Social History Social History: Social History Smoking status: Never smoker Alcohol intake: never Substance use: never Do You Feel Safe in your Home?: Yes Lack of Transportation: No Lack of Food: Never True Current Housing: I Have Housing Concerned About Future Housing: No Difficulty Paying Gas/Electric Bills: No Difficulty Paying for Meds: No Currently Unemployed: No Education: Master's Degree or Higher Jaquanu
[2023-09-22 19:22] LABS: Anion Gap 16 mmol/L (4-12); Blood Urea Nitrogen 9 mg/dL (7-17); Calcium 9.1 mg/dL (8.4-10.2); Carbon Dioxide 18 mmol/L (22-30); Chloride 103 mmol/L (98-107); Estimated CRCL calculation 141 ml/min; Estimated Glomerular Filt Rate > 60; Glucose 101 mg/dL (65-110); Sodium 137 mmol/L (137-145)
[2023-09-22 19:46] LABS: Appearance Urine Clear (Clear); Bacteria Urine None Seen /hpf; Bilirubin Urine Negative (Negative); Blood Urine 2+ (Negative); Color Urine Yellow (Yellow); Glucose Urine UA Negative (Negative); Ketones Urine Trace mg/dL (Negative); Leukocyte Esterase Ur Trace LEU/UL (Negative); Nitrate Urine Negative (Negative); Non Pathogenic Casts 0-2; Protein Urine Negative (Negative); RBC Urine 21-50 /hpf (0-2); Specific Grav Ur 1.027 (1.001-1.035); Squamous Epithelial Cell Urine Few /hpf (Few); Urobilinogen Urine 0.2 mg/dL (<2.0); WBC Urine 0-5 /hpf (0-3); pH Urine 5.5 (5.0-9.0)
[2023-09-22 19:57] LABS: Add Urine Microscopic? YES
[2023-09-22 20:28] LABS: Basophils Absolute Auto 0.1 K/mm3 (0.0-0.1); Basophils Percent Auto 0.5 % (0.2-1.2); Eosinophils Absolute Auto 0.1 K/mm3 (0-0.3); Eosinophils Percent Auto 1.2 % (0-4.4); Hematocrit 37.8 % (37.0-47.0); Hemoglobin 12.2 g/dL (12.0-15.0); Immature Granulocyte Absolute 0.03 K/mm3 (0.00-0.031); Immature Granulocyte Percent A 0.3 % (0-0.5); Lymphocytes Absolute Auto 1.72 K/mm3 (0.9-3.2); Lymphocytes Percent Auto 18.5 % (18.3-44.2); Mean Corpuscular HGB Conc 32.3 g/dl (32-36); Mean Corpuscular Volume 80.6 fl (80-100); Monocytes Absolute Auto 0.5 K/mm3 (0.1-0.6); Monocytes Percent Auto 5.7 % (2.6-8.5); Neutrophils Absolute Auto 6.9 K/mm3 (1.3-6.7); Neutrophils Percent Auto 73.8 % (45.5-73.1); Platelet Count Result 264 k/mm3 (150-375); Red Blood Count 4.69 M/mm3 (4.2-5.4); Red Cell Distribution Width 14.4 % (11.5-14.5); White Blood Count 9.3 K/mm3 (4.5-10.0)
[2023-09-22 20:35] VITALS: BP 122/76; PULSE 91; RESP 18; O2SAT 100
[2023-09-22] MEDS: SODIUM CHLORIDE 0.9% IV 1,000 ML 999 ML IV CONT (21:31)
[2023-09-22 21:49] LABS: Prothrombin Time 13.7 Seconds (11.1-14.7)
[2023-09-22 21:50] LABS: Partial Thromboplastin Time 27.9 Seconds (22.3-36.8)
== END 2023-09-22 22:26 | disposition home or self-care (01) ==
PROVIDERS: Physician Assistant; Emergency Provider Physician Assistant; PCP Obstetrics & Gynecology
DX: O20.0 Threatened abortion (principal); Z3A.09 9 weeks gestation of pregnancy
CPT/HCPCS: 36415; 76817; 80048; 81001; 84702; 85025; 85610; 85730; 86900; 86901; 96360; 99284; J7030

== ENCOUNTER 2024-02-05 08:22 | Outpatient (CLI) | payer BC, SELFPAY ==
[2024-02-05 13:50] LABS: Basophils Percent Auto 0.3 % (0.2-1.2); Eosinophils Absolute Auto 0.1 K/mm3 (0-0.3); Eosinophils Percent Auto 2.1 % (0-4.4); Hematocrit 35.2 % (37.0-47.0); Hemoglobin 10.7 g/dL (12.0-15.0); Immature Granulocyte Absolute 0.03 K/mm3 (0.00-0.031); Immature Granulocyte Percent A 0.5 % (0-0.5); Lymphocytes Absolute Auto 1.86 K/mm3 (0.9-3.2); Lymphocytes Percent Auto 29.8 % (18.3-44.2); Mean Corpuscular HGB Conc 30.4 g/dl (32-36); Mean Corpuscular Hemoglobin 23.9 pg (26-34); Mean Corpuscular Volume 78.7 fl (80-100); Mean Platelet Volume 12.1 fl (7.4-10.4); Monocytes Absolute Auto 0.3 K/mm3 (0.1-0.6); Monocytes Percent Auto 5.3 % (2.6-8.5); Neutrophils Absolute Auto 3.9 K/mm3 (1.3-6.7); Platelet Count Result 182 k/mm3 (150-375); Red Blood Count 4.47 M/mm3 (4.2-5.4); Red Cell Distribution Width 16.3 % (11.5-14.5); White Blood Count 6.2 K/mm3 (4.5-10.0)
[2024-02-05 13:59] LABS: Glucose 1 Hour PP 50gm Dose 123 mg/dL
[2024-02-05 14:36] LABS: HIV 1/2 Ab P24 Ag Result Negative (Negative)
[2024-02-06 10:15] LABS: Rapid Plasma Reagin Non-Reactive (NonReactive)
== END 2024-02-05 08:23 | disposition home or self-care (01) ==
LOC: ANHGOSHLAB 08:23
PROVIDERS: PCP Obstetrics & Gynecology; Visit Provider Obstetrics & Gynecology
DX: O09.93 Supervision of high risk pregnancy, unspecified, third trimester (principal); Z3A.00 Weeks of gestation of pregnancy not specified
CPT/HCPCS: 36415; 82947; 85025; 86592; 86703; G0432

== ENCOUNTER 2024-04-04 10:17 | Outpatient (CLI) | payer BC, SELFPAY ==
--- NOTE | ~2024-04-04 | US_ITS ---
EXAMINATION: US OB BPP wo non-stress DATE: 04/04/2024 12:03 INDICATION: Hypertension during third trimester . Assess amniotic fluid index and biophysica l profile. TECHNIQUE: Real-time pelvic ultrasound was performed. The interpreting radiologist was not present fo r the study. COMPARISON: None. FINDINGS: There is a single living fetus in vertex presentation. The placenta is on the maternal right and not low-lying. Cervix is not clearly delineated on the transabdominal imaging precluding accurate assess ment for cervical length. heart rate is 142 beats per minute (bpm). Biophysical profile performed by the technologist: breathing (30 sec sustained breathing in 30 minutes): 2 out of 2 movement (3 gross body movements in 30 minutes): 2 out of 2 tone (one episode of vrmlyyr-solwygswn-whohyrv limb movement): 2 out of 2 Amniotic fluid pocket (2 cm): 2 out of 2 Total score: 8 out of 8 IMPRESSION: 1. Single living fetus in vertex presentation with heart rate of 142 bpm. 2. Biophysical profile 8 out of 8. Reviewed, dictated and finalized at location A. NG CHECKER
[2024-04-04 10:25] VITALS: BMI 38.3
[2024-04-04 10:31] VITALS: BP 128/87; PULSE 94
[2024-04-04 10:40] LABS: Basophils Percent Auto 0.4 % (0.2-1.2); Eosinophils Absolute Auto 0.1 K/mm3 (0-0.3); Eosinophils Percent Auto 0.8 % (0-4.4); Hematocrit 35.4 % (37.0-47.0); Hemoglobin 11.3 g/dL (12.0-15.0); Immature Granulocyte Absolute 0.02 K/mm3 (0.00-0.031); Immature Granulocyte Percent A 0.3 % (0-0.5); Lymphocytes Absolute Auto 1.69 K/mm3 (0.9-3.2); Lymphocytes Percent Auto 21.6 % (18.3-44.2); Mean Corpuscular HGB Conc 31.9 g/dl (32-36); Mean Corpuscular Volume 78.3 fl (80-100); Mean Platelet Volume 11.5 fl (7.4-10.4); Monocytes Absolute Auto 0.5 K/mm3 (0.1-0.6); Monocytes Percent Auto 6.1 % (2.6-8.5); Neutrophils Absolute Auto 5.6 K/mm3 (1.3-6.7); Neutrophils Percent Auto 70.8 % (45.5-73.1); Platelet Count Result 183 k/mm3 (150-375); Red Blood Count 4.52 M/mm3 (4.2-5.4); Red Cell Distribution Width 19.2 % (11.5-14.5); White Blood Count 7.8 K/mm3 (4.5-10.0)
[2024-04-04 10:46] VITALS: BP 121/81; PULSE 81
[2024-04-04 10:53] LABS: Alanine Aminotransferase 17 U/L (6-35); Albumin Level 3.3 g/dL (3.5-5.1); Alkaline Phosphatase 174 U/L (38-126); Anion Gap 10 mmol/L (4-12); Aspartate Amino Transferase 19 U/L (14-36); Bilirubin,Total 0.9 mg/dL (0.2-1.3); Blood Urea Nitrogen 4 mg/dL (7-17); Calcium 8.5 mg/dL (8.4-10.2); Carbon Dioxide 18 mmol/L (22-30); Chloride 107 mmol/L (98-107); Estimated Glomerular Filt Rate > 60; Glucose 80 mg/dL (65-110); Potassium 3.9 mmol/L (3.4-5.0); Sodium 135 mmol/L (137-145); Uric Acid 4.3 mg/dL (2.5-7.5)
[2024-04-04 11:01] VITALS: BP 126/82; PULSE 81
[2024-04-04 11:08] LABS: Add Urine Microscopic? NO; Appearance Urine Clear (Clear); Bilirubin Urine Negative (Negative); Blood Urine Negative (Negative); Color Urine Yellow (Yellow); Glucose Urine UA Negative (Negative); Ketones Urine Negative (Negative); Leukocyte Esterase Ur Negative LEU/UL (Negative); Nitrate Urine Negative (Negative); Protein Urine Negative (Negative); Specific Grav Ur 1.003 (1.001-1.035); Urobilinogen Urine 0.2 mg/dL (<2.0)
--- OUTSIDE RECORDS SUMMARY | 2024-04-04 11:08 | XMS_ITS | Referral Summary ---
Author Organization [facility] Address [address] [place] [address] Care Team Providers Care Change Management Name Role Phone Unavailable Primary Care Provider Unavailabl e Source Comments [facility],non-owned Affiliates and Associated Physician Practices is amultiple site organization consisting of ambulatory clinics and hospital sitesin [place], [place], [place] and [place]. This disclosure is being madepursuant to the Care Everywhere program and may not contain all information available regarding this patient. Last updated 17.[facility] Encounters Date Type Department Care Team Description 04/01/2024 11:03 AM BARYTES GRINDER - 04/01/2024 11:59 PM BARYTES GRINDER Hospital Encounter [facility] [address] [place] [id number] Jose Hills MD Tomlinson, Tracy M, MD Discharge Disposition: Home or Self Care 03/04/2024 Travel 03/04/2024 10:58 AM BARYTES GRINDER - 03/04/2024 11:59 PM BARYTES GRINDER Hospital Encounter [facility] [address] [place] [id number] Juanis Poon MD Head, Genie Murphy MD Discharge Disposition: Home or Self Care 01/14/2024 10:33 AM BARYTES GRINDER Hospital Encounter [facility] [address] [id number] Deisy Weber MD Discharge Disposition: Home or Self Care 01/14/2024 10:34 AM BARYTES GRINDER - 01/14/2024 11:59 PM BARYTES GRINDER Hospital Encounter [facility] [address] [place] [id number] Walter Fregoso MD Peterson, Renuka E., MD Discharge Disposition: Home or Self Care 01/08/2024 11:09 AM BARYTES GRINDER - 01/08/2024 11:59 PM BARYTES GRINDER Hospital Encounter [facility] [address] [place], [place] [id number] Heidy Shelley MD ARGON TESTER Discharge Disposition: Home or Self Care from Last 3 Months Allergies Active Allergy Reactions Criticality Noted Date Comments Sulfa Drugs Urticaria Medium 11/02/2023 Medications * Be aware that medications may not be up to date on this document. Alwaysverify current medications with the patient. Medication Sig Dispensed Refills Start Date End Date Status Vit-DSS-Fe Fum-FA ( vitamin with iron) tablet Take 1 (one) tablet by mouth once daily Active Social History Tobacco Use Types Packs/Day Years Used Date Smoking Tobacco: Never Smokeless Tobacco: Never Tobacco Cessation:Counseling Given: Not Answered Alcohol Use Standard Drinks/Week Comments Never 0 (1 standard drink = 0.6 oz pur e alcohol) Estimated Date of Delivery Comme nts Yes 04/25/2024 Based on last me nstrual period of 07/20/2023 Sex and Gender Information Value Date Recorded Sex Assigned at Not on file Gender Identity Not on file Sexual Orientation Not on file Last Filed Vital Signs Vital Sign Reading Time Taken Comments Blood Pressure 108/62 11/11/2023 12:09 PM CDT Pulse 68 11/11/2023 12:09 PM CDT Temperature - - Respiratory Rate - - Oxygen Saturation - - Inhaled Oxygen Concentration - - Weight 104.5 kg (230 lb 6.4 oz) 024 12:09 PM CDT Height 165.1 cm (5' 5 ) 11/11/2023 12:0 9 PM CDT Body Mass Index 38.34 11/11/2023 12:09 PM CDT Plan of Treatment Upcoming Encounters Date Type Department Care Team (Late st Contact Info) Description 04/08/2024 11:15 AM BARYTES GRINDER Hospital Encounter [facility] [address] [place] [id number] 04/15/2024 11:15 AM BARYTES GRINDER Hospital Encounter [facility] [address] [place] [phone] 04/22/2024 11:15 AM BARYTES GRINDER Hospital Encounter [facility] [address] [place] [id number] Procedures Procedure Name Priority Date/Time Associated Diagnosis Comments SONOGRAM - COMPLETE Routine 04/01/2024 1 1:20 AM BARYTES GRINDER 24 weeks gestation of (HCC) History of delivery, currently (HCC) Bicornuate uterus Encounter for anatomic survey (HCC) Short interval between pregnancies affecting in second trimester, antepartum (HCC) Obesity affecting in second trimester, unspecified obesity type (HCC) SONOGRAM - COMPLETE Routine 03/04/2024 1 1:08 AM BARYTES GRINDER History of delivery, currently (HCC) Bicornuate uterus Body mass index (BMI) 37.0-37.9, adult 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, antepartum (HCC) 32 weeks gestation of (HCC) ECHO COMPLETE CG Routine 01/14/2024 11:18 AM BARYTES GRINDER 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, antepartum (HCC) SONOGRAM - COMPLETE Routine 01/08/2024 1 1:11 AM BARYTES GRINDER 24 weeks gestation of (HCC) History of delivery, currently (HCC) Bicornuate uterus Encounter for anatomic survey (HCC) Short interval between pregnancies affecting in second trimester, antepartum (HCC) Obesity affecting in second trimester, unspecified obesity type (HCC) from Last 3 Months Results * SONOGRAM - COMPLETE (04/01/2024 11:20 AM BARYTES GRINDER) Only the most recent of3 resultswithin the time period is included. Linked Results Indication ======== Suspected accelerated growth Class II obesity Bicornuate uterus G1: PPROM & 35 week on 06/30/22 (short IPI) History ====== OB History 2. Para 1 [id number] 1. live . Gest. age 35 w + 0 d. Details: PPROM Lab Tests Test Date Result Completed anatomic survey No genetic testing Maternal Assessment == Physical Exam Height 165 cm, 5 ft 5 in. Weight 104 kg, 230 lb. Initial weight 103 kg, 228 lb. BMI 38.27 kg/m . Initial BMI 37.94 kg/m . Weight gain 1 kg, 2 lb Method ====== Transabdominal ultrasound examination. View: Sufficient ========= Cai . Number of fetuses: 1 Dating ====== Date Details Gest. age RICK LMP 07/20/2023 36 w + 4 d 04/25/2024 Stated RICK 36 w + 4 d 04/25/2024 Assigned dating based on the LMP, selected on 12/25/2023 36 w + 4 d 04/25/2024 General Evaluation Cardiac activity present. FHR 141 bpm. Presentation: cephalic Placenta: Placental site: posterior Amniotic Fluid Assessment ====== Amount of AF: normal ELEANOR 18.3 cm. Q1 5.9 cm, Q2 1.2 cm, Q3 5.1 cm, Q4 6.1 cm Biophysical Profile 2: breathing movements 2: Gross body movements 2: tone 2: Amniotic fluid volume 09/30 Biophysical profile score Biometry BPD 91.1 mm 37w 0d 73% Hadlock HC 343.5 mm 39w 5d 89% Hadlock AC 354.8 mm 39w 3d >99% Hadlock Femur 69.4 mm 35w 4d 23% Hadlock Humerus 64.9 mm 37w 5d 91% Doni HC / AC 0.97 Weight Calculation: EFW 3,478 g 92% Hadlock EFW (lb,oz) 7 lb 11 oz EFW by Hadlock (HC-AC-FL) Growth Overview == Exam date GA BPD (mm) HC (mm) AC (mm) FL (mm) HL (mm) EFW (g) 01/08/2024 24w 4d 64.2 86% 237.2 74% 218.6 89% 43.5 28% 44.1 89% 820 81% 03/04/2024 32w 4d 83.9 77% 319.2 92% 315 99% 62.7 34% 57.7 81% 2451 92% 04/01/2024 36w 4d 91.1 73% 343.5 89% 354.8 >99% 69.4 23% 64.9 91% 3478 92% Anatomy The following structures appear normal: Abdomen Stomach. Kidneys. Bladder. Impression ========= 1) Cai gestation, 36w4d 2) Today's biometry is again concerning for accelerated growth 3) The amniotic fluid volume is within normal limits 4) Reassuring 8-point biophysical profile Follow-up ======== Weekly 8-point BPPs while awaiting admission for delivery around 39 weeks (or sooner if indicated) Coding ====== Procedures [address]: [place] [address]: Biophysical Profile W/O NST [facility] [employer] Anatomical Region Laterality Modality Other 04/01/2024 11:2 0 AM BARYTES GRINDER Jessica Arias MD [facility] ORDERABLES * ECHO COMPLETE CG (01/14/2024 11:18 AM BARYTES GRINDER) MV E pk fahad 26.76 cm/s [facility] CV F UJI PACS MV A pk fahad 51.4 cm/s [facility] CV F U PACS Anatomical Region Laterality Modality Ultrasound 01/14/2024 10:4 1 AM BARYTES GRINDER Narrative 01/14/2024 2:44 PM BARYTES GRINDER Name: Beatriz Ramos Patient Exam Info Gender: Female Patient Status: O/P : 1995 Admit Date: 01/14/2024 Exam Date/Time: 01/14/2024 10:41 AM Site: [facility] Current Location: CARE EStudy Quality: Diagnostic quality Staff Ordering Provider: Walter Fregoso Interpreting Physician: Deisy Weber MD Last Sawyer: Annia Bacon [facility] Study Info Procedure: ECHO COMPLETE CG Indications: O09.299 - 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, antepartum (HCC) Maternal Gestational Status GA by EDC: 25 wks , 3 days EDC: 04/25/2024 Type: Cai Age: 28 yrs Lie: Breech Summary * The echocardiogram was within normal limits. * Small atrial and ventricular septal defects and persistent ductus arteriosus cannot be excluded as findings. Anatomic Relationships Left sided cardiac apex (levocardia). There is normal visceral-cardiac situs, and normal segmental cardiac anatomical relationship. Systemic Veins There is normal systemic venous return. Pulmonary Veins The visualized pulmonary veins drain normally to the left atrium. Right Atrium The right atrial size is normal. Left Atrium The left atrial size is normal. Atrial Septum Patent foramen ovale with open foramen flap. Color flow is right to left. Right Ventricle The right ventricular cavity size is normal. The right ventricular wall thickness is normal. The right ventricular systolic function is normal. RV Outflow Tract The right ventricular outflow tract is normal. Left Ventricle The left ventricular cavity size is normal. The left ventricular wall thickness is normal. The left ventricular systolic function is normal. Ventricular Septum There is no ventricular septal defect with no shunting. LV Outflow Tract The left ventricular outflow tract is normal. Tricuspid Valve The tricuspid valve is structurally normal. The tricuspid inflow pattern is normal. Tricuspid velocity is within the normal range. There is no tricuspid regurgitation. Mitral Valve The mitral valve is structurally normal. The mitral inflow pattern is normal. Mitral velocity is within the normal range. There is no mitral regurgitation. Aorta aortic arch visualized and is without obstruction by 2D, color flow and Doppler. Pulmonary Arteries The main pulmonary artery is normal, with confluent branch pulmonary arteries. Ductus Arteriosus The antegrade flow velocity and pattern in the ductal arch is normal. A normal ductus arteriosus is appreciated. Doppler Flow in the ductus venosus is normal. The umbilical vein flow pattern is normal. The umbilical artery flow pattern is normal. Hydrops Assessment No pericardial effusion. No ascites present. No pleural effusion(s). Rhythm The rhythm is normal. There is 1:1 AV conduction. Pulmonary Valve The pulmonic valve is normal-sized. The transpulmonic velocity is within normal range. There is no pulmonic regurgitation. Aortic Valve The aortic valve is normal-sized. The transaortic velocity is within normal range. There is no aortic regurgitation. Doppler Measurements (Fetus A) Atrioventricular Valves Name Value Normal Z-Score Percentile Atrioventricular Valves Doppler TV E Peak Velocity 0.3 m/s TV A Peak Velocity 0.5 m/s MV E Peak Velocity 0.3 m/s MV A Peak Velocity 0.5 m/s (Fetus A) Semilunar Valves Name Value Normal Z-Score Percentile Semilunar Valves Doppler PV Peak Velocity. 0.6 m/s AV Peak Velocity () 0.9 m/s (Fetus A) Heart Rate Name Value Normal Z-Score Percentile Heart Rate HR 133 bpm Report Signatures Finalized by Deisy Weber MD on 01/14/2024 02:44 PM Procedure Note Deisy Weber MD - 01/14/2024 Name: Beatriz Ramos Patient Exam Info Gender: Female Patient Status: O/P : 1995 Admit Date: 01/14/2024 Exam Date/Time: 01/14/2024 10:41 AM Site: [facility] Current Location: CARE EStudy Quality: Diagnostic quality Staff Ordering Provider: Walter Fregoso Interpreting Physician: Deisy Weber MD Last Sawyer: Annia Bacon [facility] Study Info Procedure: ECHO COMPLETE CG Indications: O09.299 - Current cai with history of congenitalanomaly in prior child, antepartum (HCC) Maternal Gestational Status GA by EDC: 25 wks , 3 days EDC: 04/25/2024 Type: Cai Age: 28 yrs Lie: Breech Summary * The echocardiogram was within normal limits. * Small atrial and ventricular septal defects and persistent ductus arteriosus cannot be excluded as findings. Anatomic Relationships Left sided cardiac apex (levocardia). There is normal visceral-cardiac situs, and normal segmental cardiac anatomical relationship. Systemic Veins There is normal systemic venous return. Pulmonary Veins The visualized pulmonary veins drain normally to the left atrium. Right Atrium The right atrial size is normal. Left Atrium The left atrial size is normal. Atrial Septum Patent foramen ovale with open foramen flap. Color flow is right toleft. Right Ventricle The right ventricular cavity size is normal. The right ventricularwall thickness is normal. The right ventricular systolic function is normal. RV Outflow Tract The right ventricular outflow tract is normal. Left Ventricle The left ventricular cavity size is normal. The left ventricular wall thickness is normal. The left ventricular systolic function is normal. Ventricular Septum There is no ventricular septal defect with no shunting. LV Outflow Tract The left ventricular outflow tract is normal. Tricuspid Valve The tricuspid valve is structurally normal. The tricuspid inflow patternis normal. Tricuspid velocity is within the normal range. There is notricuspid regurgitation. Mitral Valve The mitral valve is structurally normal. The mitral inflow pattern is normal. Mitral velocity is within the normal range. There is no mitral regurgitation. Aorta aortic arch visualized and is without obstruction by 2D, colorflow and Doppler. Pulmonary Arteries The main pulmonary artery is normal, with confluent branch pulmonary arteries. Ductus Arteriosus The antegrade flow velocity and pattern in the ductal arch is normal.A normal ductus arteriosus is appreciated. Doppler Flow in the ductus venosus is normal. The umbilical vein flow patternis normal. The umbilical artery flow pattern is normal. Hydrops Assessment No pericardial effusion. No ascites present. No pleural effusion(s). Rhythm The rhythm is normal. There is 1:1 AV conduction. Pulmonary Valve The pulmonic valve is normal-sized. The transpulmonic velocity iswithin normal range. There is no pulmonic regurgitation. Aortic Valve The aortic valve is normal-sized. The transaortic velocity is withinnormal range. There is no aortic regurgitation. Doppler Measurements (Fetus A) Atrioventricular Valves Name Value Normal Z-ScorePercentile Atrioventricular Valves Doppler TV E Peak Velocity 0.3 m/s TV A Peak Velocity 0.5 m/s MV E Peak Velocity 0.3 m/s MV A Peak Velocity 0.5 m/s (Fetus A) Semilunar Valves Name Value Normal Z-ScorePercentile Semilunar Valves Doppler PV Peak Velocity. 0.6 m/s AV Peak Velocity () 0.9 m/s (Fetus A) Heart Rate Name Value Normal Z-ScorePercentile Heart Rate HR 133 bpm Report Signatures Finalized by Deisy Weber MD on 01/14/2024 02:44 PM Walter Fregoso MD ECHO CUPID from Last 3 Months Beatriz Ramos Personal/Famil y Self 1995
--- OUTSIDE RECORDS SUMMARY | 2024-04-04 11:08 | XMS_ITS | Clinical Summary ---
Author Organization [facility] Address [address] [facility] [address] [facility] [address] Care Team Providers Care Career Agent Name Role Phone Unavailable Primary Care Provider Unavailabl e Source Comments [facility],non-owned Affiliates and Associated Physician Practices is amultiple site organization consisting of ambulatory clinics and hospital sitesin [place], [place], [place] and [place]. This disclosure is being madepursuant to the Care Everywhere program and may not contain all information available regarding this patient. Last updated 17.[facility] Allergies Active Allergy Reactions Criticality Noted Date Comments Sulfa Drugs Urticaria Medium 11/02/2023 Medications * Be aware that medications may not be up to date on this document. Alwaysverify current medications with the patient. Medication Sig Dispensed Refills Start Date End Date Status Vit-DSS-Fe Fum-FA ( vitamin with iron) tablet Take 1 (one) tablet by mouth once daily Active Encounters Date Type Department Care Team Description 04/01/2024 11:03 AM SENIOR SOURCING MANAGER - 04/01/2024 11:59 PM SENIOR SOURCING MANAGER Hospital Encounter [facility] [address] [place] [phone] Jose Hills MD Tomlinson, Tracy M, MD Discharge Disposition: Home or Self Care 03/04/2024 10:58 AM SENIOR SOURCING MANAGER - 03/04/2024 11:59 PM SENIOR SOURCING MANAGER Hospital Encounter [facility] [address] [place] [id number] Juanis Poon MD Head, Genie Murphy MD Discharge Disposition: Home or Self Care 03/04/2024 Travel 01/14/2024 10:34 AM SENIOR SOURCING MANAGER - 01/14/2024 11:59 PM SENIOR SOURCING MANAGER Hospital Encounter [facility] [address] [address] Walter Fregoso MD Peterson, Renuka E., MD Discharge Disposition: Home or Self Care 01/14/2024 10:33 AM SENIOR SOURCING MANAGER Hospital Encounter [address] [address] Deisy Weber MD Discharge Disposition: Home or Self Care 01/08/2024 11:09 AM SENIOR SOURCING MANAGER - 01/08/2024 11:59 PM [facility] Hospital Encounter [facility] [address] [place], [place] [id number] Heidy Shelley MD SPONGE FISHERMAN Discharge Disposition: Home or Self Care from Last 3 Months Social History Tobacco Use Types Packs/Day Years [...] st Contact Info) Description 04/08/2024 11:15 AM SENIOR SOURCING MANAGER Hospital Encounter [facility] [address] [place] [address] 04/15/2024 11:15 AM SENIOR SOURCING MANAGER Hospital Encounter [facility] [address] [place] [address] 04/22/2024 11:15 AM SENIOR SOURCING MANAGER Hospital Encounter [facility] [address] [place] [phone] Health Maintenance Due Date Last Done Comments PAP SMEAR 1995 HIV SCREENING 2009 HEPATITIS C SCREENING 07/05/2012 DTAP/TDAP/TD VACCINES (1 - Tdap) 2013 HEPATITIS B VACCINE (1 of 3 - 19+ 3-dose series) 2013 COVID-19 VACCINE ( - 2023-2 5 season) 2023 INFLUENZA VACCINE (#1) 2023 OB-ONE HOUR GLUCOSE 01/18/2024 OB-TDAP CURRENT 01/25/2024 OB-RHOGAM INJECTION 02/01/2024 DEPRESSION SCREENING 02/24/2024 OB-GROUP B STREP SCREEN 03/21/2024 ZOSTER VACCINE (1 of 2) 2044 HIB VACCINE Aged Out No longer eligi ble based on patient's age to complete this topic HPV VACCINE Aged Out No longer eligi ble based on patient's age to complete this topic MENINGOCOCCAL (Group B) VACCINE Aged Out No longer eligible based on patient's age to complete this topic MENINGOCOCCAL VACCINE Aged Out No jayro dari eligible based on patient's age to complete this topic PNEUMOCOCCAL VACCINE Aged Out No long er eligible based on patient's age to complete this topic Respiratory Syncytial Virus (RSV) Vaccine Pt: or over 60 yrs (No Doses Required) Completed Procedures Procedure Name Priority Date/Time Associated Diagnosis Comments SONOGRAM - COMPLETE Routine 04/01/2024 1 1:20 AM SENIOR SOURCING MANAGER 24 weeks gestation of (HCC) History of delivery, currently ([facility]) Bicornuate uterus Encounter for anatomic survey ([facility]) Short interval between pregnancies affecting in second trimester, antepartum ([facility]) Obesity affecting in second trimester, unspecified obesity type ([facility]) SONOGRAM - COMPLETE Routine 03/04/2024 1 1:08 AM SENIOR SOURCING MANAGER History of delivery, currently (HCC) Bicornuate uterus Body mass index (BMI) 37.0-37.9, adult 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, antepartum (HCC) 32 weeks gestation of (HCC) ECHO COMPLETE CG Routine 01/14/2024 11:18 AM SENIOR SOURCING MANAGER 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, antepartum ([facility]) SONOGRAM - COMPLETE Routine 01/08/2024 1 1:11 AM SENIOR SOURCING MANAGER 24 weeks gestation of (HCC) History of delivery, currently (HCC) Bicornuate uterus Encounter for anatomic survey ([facility]) Short interval between pregnancies affecting in second trimester, antepartum (HCC) Obesity affecting in second trimester, unspecified obesity type ([facility]) from Last 3 Months Results * SONOGRAM - COMPLETE (04/01/2024 11:20 AM SENIOR SOURCING MANAGER) Only the most recent of3 resultswithin the time period is included. Linked Results Indication ======== Suspected accelerated growth Class II obesity Bicornuate uterus G1: PPROM & 35 week on 06/30/22 (short IPI) History ====== OB History 2. Para 1 [id number] 1. live . Gest. age 34 w [...] (or sooner if indicated) Coding ====== Procedures 94965: [place] [address]: Biophysical Profile W/O NST [employer] PACS Anatomical Region Laterality Modality Other 04/01/2024 11:2 0 AM SENIOR SOURCING MANAGER Jessica Arias MD [facility] ORDERABLES * ECHO COMPLETE CG (01/14/2024 11:18 AM SENIOR SOURCING MANAGER) MV E pk fahad 26.76 cm/s [facility] CV F UJI PACS MV A pk fahad 51.4 cm/s [facility] CV F UJI PACS Anatomical Region Laterality Modality Ultrasound 01/14/2024 10:4 1 AM SENIOR SOURCING MANAGER Narrative 01/14/2024 2:44 PM SENIOR SOURCING MANAGER Name: Beatriz Ramos Patient Exam Info Gender: Female Patient Status: O/P : 1995 Admit Date: 01/14/2024 Exam Date/Time: 01/14/2024 10:41 AM Site: [facility] Current Location: CARE EStudy Quality: Diagnostic quality Staff Ordering Provider: Walter Fregoso Interpreting Physician: Deisy Weber MD Title Agent: Annia Bacon [facility] Study Info Procedure: ECHO COMPLETE CG [...] 01/14/2024 Exam Date/Time: 01/14/2024 10:41 AM Site: [facility] Current Location: CARE EStudy Quality: Diagnostic quality Staff Ordering Provider: Walter Fregoso Interpreting Physician: Deisy Weber MD Title Agent: Annia Bacon [facility] Study Info Procedure: ECHO COMPLETE CG [...]
--- OUTSIDE RECORDS SUMMARY | 2024-04-04 11:08 | XMS_ITS | Patient Health Summary ---
Author Organization [facility] Address [address] [place] [address] Care Team Providers Care Quality Consultant Name Role Phone Unavailable Primary Care Provider Unavailabl e Note from [facility],non-owned Affiliates and Associated Physician Practices is amultiple site organization consisting of ambulatory clinics and hospital sitesin [place]. This disclosure is being madepursuant to the Care Everywhere program and may not contain all information available regarding this patient. Last updated 17.[facility] Allergies * Sulfa Drugs(Urticaria) -Medium Criticality * Celecoxib(Urticaria) -Medium Criticality,Inactive Medications * Be aware that medications may not be up to date on this document. Alwaysverify current medications with the patient. * Vit-DSS-Fe Fum-FA ( vitamin with iron) tablet Take 1 (one) tablet by mouth once daily Social History Tobacco Use Types Packs/Day Years [...] Mass Index 38.34 11/11/2023 12:09 PM CDT Procedures * SONOGRAM - COMPLETE(Performed 04/01/2024) Performed for 24 weeks gestation of (HCC), History of delivery, currently (HCC), Bicornuate uterus, Encounter for anatomic survey (HCC), Short interval between pregnancies affecting in second trimester, antepartum (HCC), Obesity affecting in second trimester, unspecified obesity type (HCC) * SONOGRAM - COMPLETE(Performed 03/04/2024) Performed for History of delivery, currently (HCC), Bicornuate uterus, Body mass index (BMI) 37.0-37.9, adult, Current cai with 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child, antepartum (HCC), 32 weeks gestation of (HCC) * ECHO COMPLETE CG(Performed 01/14/2024) Performed for 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, antepartum ([facility]) * SONOGRAM - COMPLETE(Performed 01/08/2024) Performed for 24 weeks gestation of (HCC), History of delivery, currently (HCC), Bicornuate uterus, Encounter for anatomic survey (HCC), Short interval between pregnancies affecting in second trimester, antepartum (HCC), Obesity affecting in second trimester, unspecified obesity type (HCC) * SONOGRAM - COMPLETE(Performed 12/25/2023) Performed for History of delivery, currently (HCC), Bicornuate uterus, Short interval between pregnancies affecting in second trimester, antepartum (HCC), Encounter for anatomic survey ([facility]), Body mass index (BMI) 37.0-37.9, adult, History of premature rupture of membranes (PPROM), Encounter for screening for cervical length ([facility]) * SONOGRAM - COMPLETE(Performed 12/11/2023) Performed for History of delivery, currently (HCC), Bicornuate uterus, Short interval between pregnancies affecting in second trimester, antepartum (HCC), Encounter for anatomic survey ([facility]), Body mass index (BMI) 37.0-37.9, adult, History of premature rupture of membranes (PPROM), Encounter for screening for cervical length ([facility]) * SONOGRAM - COMPLETE(Performed 11/27/2023) Performed for Encounter for follow-up ultrasound of anatomy ([facility]) * SONOGRAM - COMPLETE(Performed 11/11/2023) Performed for History of delivery, currently ([facility]), Bicornuate uterus, Short interval between pregnancies affecting in second trimester, antepartum ([facility]), Encounter for anatomic survey ([facility]), Body mass index (BMI) 37.0-37.9, adult, History of premature rupture of membranes (PPROM), Encounter for screening for cervical length ([facility]) Results * SONOGRAM - COMPLETE (04/01/2024 11:20 AM MEDICAL ENGINEER) Only the most recent of7 resultswithin the time period is included. Linked Results Indication ======== Suspected accelerated growth Class II obesity Bicornuate uterus G1: PPROM & 35 week on 06/30/22 (short IPI) History ====== OB History 2. Para 1 [id number] 1. live . Gest. age 35 w [...] (or sooner if indicated) Coding ====== Procedures [id number]: [place] [address]: Biophysical Profile W/O NST [employer] PACS Anatomical Region Laterality Modality Other 04/01/2024 11:2 0 AM MEDICAL ENGINEER Jessica Arias MD [facility] ORDERABLES * ECHO COMPLETE CG (01/14/2024 11:18 AM MEDICAL ENGINEER) MV E pk fahad 26.76 cm/s [facility] CV F UJI PACS MV A pk fahad 51.4 cm/s [facility] CV F UJI PACS Anatomical Region Laterality Modality Ultrasound 01/14/2024 10:4 1 AM MEDICAL ENGINEER Narrative 01/14/2024 2:44 PM MEDICAL ENGINEER Name: Beatriz Ramos Patient Exam Info Gender: Female Patient Status: O/P : 1995 Admit Date: 01/14/2024 Exam Date/Time: 01/14/2024 10:41 AM Site: [facility] Current Location: CARE EStudy Quality: Diagnostic quality Staff Ordering Provider: Walter Fregoso Interpreting Physician: Deisy Weber MD Nut Sorter Operator: Annia Bacon [facility] Study Info Procedure: ECHO COMPLETE CG Indications: [...] 01/14/2024 Exam Date/Time: 01/14/2024 10:41 AM Site: [facility] Current Location: CARE EStudy Quality: Diagnostic quality Staff Ordering Provider: Walter Fregoso Interpreting Physician: Deisy Weber MD Nut Sorter Operator: Annia Bacon [facility] Study Info Procedure: ECHO COMPLETE CG Indications: [...] on 01/14/2024 02:44 PM Walter Fregoso MD [facility]
[2024-04-04 11:16] VITALS: BP 123/65; PULSE 74
[2024-04-04 11:35] LABS: Creatinine Urine 28.8 mg/dL; Total Protein Urine Random 13 mg/dL; Ur Ttl Prot Creatinine Ratio 0.45 mg/mg (0-0.20)
--- NOTE | 2024-04-04 12:28 | PC.NURSE ---
Called Dr. Arias with lab results and BPs. June D/C home with 24hr urine and return for NST on .
== END 2024-04-04 12:45 | disposition home or self-care (01) ==
LOC: ANHOBOP 10:20 → ANHOBPP 10:21
PROVIDERS: Visit Provider Obstetrics & Gynecology
DX: O13.9 Gestational [pregnancy-induced] hypertension without significant proteinuria, unspecified trimester (principal); Z3A.00 Weeks of gestation of pregnancy not specified
CPT/HCPCS: 36415; 59025; 76819; 80053; 81003; 82570; 84156; 84550; 85025; 99199

== ENCOUNTER 2024-04-05 13:40 | Outpatient (NON) | payer BC, SELFPAY ==
[2024-04-05 14:59] VITALS: BMI 38.3
[2024-04-05 15:18] LABS: Collection Time Urine 24 HOURS
[2024-04-05 15:19] LABS: Patient Weight 230 Lbs; Total Volume 24 Hour Urine 800 ml
--- OUTSIDE RECORDS SUMMARY | 2024-04-05 15:33 | XMS_ITS | Patient Health Summary ---
Author Organization [facility] Address [address] [place] [address] Care Team Providers Care Jig And Fixture Builder Apprentice Name Role Phone Unavailable Primary Care Provider Unavailabl e Note from [facility],non-owned Affiliates and Associated Physician Practices is amultiple site organization consisting of ambulatory clinics and hospital sitesin [place], [place], [place] and [place]. This disclosure is being madepursuant to the Care Everywhere program and may not contain all information available regarding this patient. Last updated 17.[facility] Allergies * Sulfa Drugs(Urticaria) -Medium Criticality * [...] 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 child, antepartum ([facility]) * SONOGRAM - COMPLETE(Performed 01/08/2024) Performed for [...] trimester, antepartum (HCC), Encounter for anatomic survey ([facility]), Body mass index (BMI) 37.0-37.9, adult, History of premature rupture of membranes (PPROM), Encounter for screening for cervical length ([facility]) * SONOGRAM - COMPLETE(Performed 12/11/2023) Performed for History of delivery, currently (HCC), Bicornuate uterus, Short interval between pregnancies affecting in second trimester, antepartum (HCC), Encounter for anatomic survey ([facility]), Body mass index (BMI) 37.0-37.9, adult, History of premature rupture of membranes (PPROM), Encounter for screening for cervical length ([facility]) * SONOGRAM - COMPLETE(Performed 11/27/2023) Performed for Encounter for follow-up ultrasound of anatomy ([facility]) * SONOGRAM - COMPLETE(Performed 11/11/2023) Performed for History of delivery, currently ([facility]), Bicornuate uterus, Short interval between pregnancies affecting in second trimester, antepartum ([facility]), Encounter for anatomic survey ([facility]), Body mass index (BMI) 37.0-37.9, adult, History of premature rupture of membranes (PPROM), Encounter for screening for cervical length ([facility]) Results * SONOGRAM - COMPLETE (04/01/2024 11:20 AM TIMBER HAND) Only the most recent of7 resultswithin the time period is included. Linked Results Indication ======== Suspected accelerated growth Class II obesity Bicornuate uterus G1: PPROM & 35 week on 06/30/22 (short IPI) History ====== OB History 2. Para 1 [id number] 1. live . Gest. age 34 w [...] (or sooner if indicated) Coding ====== Procedures [id number]: [place] [address]: Biophysical Profile W/O NST [employer] PACS Anatomical Region Laterality Modality Other 04/01/2024 11:2 0 AM TIMBER HAND Jessica Arias MD [facility] ORDERABLES * ECHO COMPLETE CG (01/14/2024 11:18 AM TIMBER HAND) MV E pk fahad 26.76 cm/s [facility] CV F UJI PACS MV A pk fahad 51.4 cm/s [facility] CV F UJI PACS Anatomical Region Laterality Modality Ultrasound 01/14/2024 10:4 1 AM TIMBER HAND Narrative 01/14/2024 2:44 PM TIMBER HAND Name: Beatriz Ramos Patient Exam Info Gender: Female Patient Status: O/P : 1995 Admit Date: 01/14/2024 Exam Date/Time: 01/14/2024 10:41 AM Site: [facility] Current Location: CARE EStudy Quality: Diagnostic quality Staff Ordering Provider: Walter Fregoso Interpreting Physician: Deisy Weber MD Fixed Interest Dealer: Annia Bacon [facility] Study Info Procedure: ECHO COMPLETE CG [...] 01/14/2024 Exam Date/Time: 01/14/2024 10:41 AM Site: [facility] Current Location: CARE EStudy Quality: Diagnostic quality Staff Ordering Provider: Walter Fregoso Interpreting Physician: Deisy Weber MD Fixed Interest Dealer: Annia Bacon [facility] Study Info Procedure: ECHO COMPLETE CG [...] on 01/14/2024 02:44 PM Walter Fregoso MD [facility]
--- OUTSIDE RECORDS SUMMARY | 2024-04-05 15:33 | XMS_ITS | Clinical Summary ---
Author Organization [facility] Address [address] [place] [address] Care Team Providers Care Bottler Helper Name Role Phone Unavailable Primary Care Provider Unavailabl e Source Comments [facility],non-owned Affiliates and Associated Physician Practices is amultiple site organization consisting of ambulatory clinics and hospital sitesin [place], [place], [place] and [place]. This disclosure is being madepursuant to the Care Everywhere program and may not contain all information available regarding this patient. Last updated 17.[facility] Allergies Active Allergy Reactions Criticality Noted Date [...] Department Care Team Description 04/01/2024 11:03 AM INSPECTOR REPAIRER - 04/01/2024 11:59 PM INSPECTOR REPAIRER Hospital Encounter [facility] [address] [place] [phone] Jose Hills MD Tomlinson, Tracy M, MD Discharge Disposition: Home or Self Care 03/04/2024 10:58 AM INSPECTOR REPAIRER - 03/04/2024 11:59 PM INSPECTOR REPAIRER Hospital Encounter [facility] [address] [place] [phone] Juanis Poon MD Head, Genie Murphy MD Discharge Disposition: Home or Self Care 03/04/2024 Travel 01/14/2024 10:34 AM INSPECTOR REPAIRER - 01/14/2024 11:59 PM INSPECTOR REPAIRER Hospital Encounter [facility] [address] [address] Walter Fregoso MD Peterson, Renuka E., MD Discharge Disposition: Home or Self Care 01/14/2024 10:33 AM INSPECTOR REPAIRER Hospital Encounter [address] [address] Deisy Weber MD Discharge Disposition: Home or Self Care 01/08/2024 11:09 AM INSPECTOR REPAIRER - 01/08/2024 11:[address] [facility] Hospital Encounter [facility] [address] [place], [place] [phone] Heidy Shelley MD PUBLIC HOUSING INTERVIEWER Discharge Disposition: Home or Self Care from [...] st Contact Info) Description 04/08/2024 11:15 AM INSPECTOR REPAIRER Hospital Encounter [facility] [address] [place] [address] Heidy Shelley MD [address] [facility] [address] [place] [address] PUBLIC HOUSING INTERVIEWER 04/15/2024 11:15 AM INSPECTOR REPAIRER Hospital Encounter [facility] [address] [place] [address] 04/22/2024 11:15 AM INSPECTOR REPAIRER Hospital Encounter [facility] [address] [place] [address] Health Maintenance Due Date Last Done Comments [...] - COMPLETE Routine 04/01/2024 1 1:20 AM INSPECTOR REPAIRER 24 weeks gestation of (HCC) History of delivery, currently (HCC) Bicornuate uterus Encounter for anatomic survey (HCC) Short interval between pregnancies affecting in second trimester, antepartum (HCC) Obesity affecting in second trimester, unspecified obesity type (HCC) SONOGRAM - COMPLETE Routine 03/04/2024 1 1:08 AM INSPECTOR REPAIRER History of delivery, currently (HCC) Bicornuate uterus Body mass index (BMI) 37.0-37.9, adult 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, antepartum (HCC) 32 weeks gestation of (HCC) ECHO COMPLETE CG Routine 01/14/2024 11:18 AM INSPECTOR REPAIRER 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 Linked Results Indication ======== Suspected accelerated growth Class II obesity Bicornuate uterus G1: PPROM & 35 week on 06/30/22 (short IPI) History ====== OB History 2. Para 1 [id number] 1. live . Gest. age 34 w [...] (or sooner if indicated) Coding ====== Procedures [id number]: [place] [address]: Biophysical Profile W/O NST [employer] PACS Anatomical Region Laterality Modality Other 04/01/2024 11:2 0 AM INSPECTOR REPAIRER Jessica Arias MD [facility] ORDERABLES * ECHO COMPLETE CG (01/14/2024 11:18 AM INSPECTOR REPAIRER) MV E pk fahad 26.76 cm/s [facility] CV F UJI PACS MV A pk fahad 51.4 cm/s [facility] CV F UJI PACS Anatomical Region Laterality Modality Ultrasound 01/14/2024 10:4 1 AM INSPECTOR REPAIRER Narrative 01/14/2024 2:44 PM INSPECTOR REPAIRER Name: Beatriz Ramos Patient Exam Info Gender: Female Patient Status: O/P : 1995 Admit Date: 01/14/2024 Exam Date/Time: 01/14/2024 10:41 AM Site: [facility] Current Location: CARE EStudy Quality: Diagnostic quality Staff Ordering Provider: Walter Fregoso Interpreting Physician: Deisy Weber MD Video Editing Internship: Annia Bacon [facility] Study Info Procedure: ECHO COMPLETE [...] 01/14/2024 Exam Date/Time: 01/14/2024 10:41 AM Site: [facility] Current Location: CARE EStudy Quality: Diagnostic quality Staff Ordering Provider: Walter Fregoso Interpreting Physician: Deisy Weber MD Video Editing Internship: Annia Bacon [facility] Study Info Procedure: ECHO COMPLETE [...]
--- OUTSIDE RECORDS SUMMARY | 2024-04-05 15:33 | XMS_ITS | Referral Summary ---
Author Organization [facility] Address [address] [place] [address] Care Team Providers Care Managing Partner Name Role Phone Unavailable Primary Care Provider Unavailabl e Source Comments [facility],non-owned Affiliates and Associated Physician Practices is amultiple site organization consisting of ambulatory clinics and hospital sitesin [place], [place], [place] and [place]. This disclosure is being madepursuant to the Care Everywhere program and may not contain all information available regarding this patient. Last updated 17.[facility] Encounters Date Type Department Care Team Description 04/01/2024 11:03 AM ANNEALER HELPER - 04/01/2024 11:59 PM ANNEALER HELPER Hospital Encounter [facility] [address] [place] [phone] Jose Hills MD Tomlinson, Tracy M, MD Discharge Disposition: Home or Self Care 03/04/2024 Travel 03/04/2024 10:58 AM ANNEALER HELPER - 03/04/2024 11:59 PM ANNEALER HELPER Hospital Encounter [facility] [address] [place] [phone] Juanis Poon MD Head, Genie Murphy MD Discharge Disposition: Home or Self Care 01/14/2024 10:33 AM ANNEALER HELPER Hospital Encounter [facility] [address] [address] Deisy Weber MD Discharge Disposition: Home or Self Care 01/14/2024 10:34 AM ANNEALER HELPER - 01/14/2024 11:59 PM ANNEALER HELPER Hospital Encounter [facility] [place] [address] [place] [address] Walter Fregoso MD Peterson, Renuka E., MD Discharge Disposition: Home or Self Care 01/08/2024 11:09 AM ANNEALER HELPER - 01/08/2024 11:59 PM ANNEALER HELPER Hospital Encounter [facility] M[facility] & Care [address] [place], [place] [id number] Heidy Shelley MD MANAGER ENVIRONMENTAL AFFAIRS Discharge Disposition: Home or Self Care from [...] st Contact Info) Description 04/08/2024 11:15 AM ANNEALER HELPER Hospital Encounter [facility] [address] [place] [address] Heidy Shelley MD [address] [facility] [address] [place] [address] MANAGER ENVIRONMENTAL AFFAIRS 04/15/2024 11:15 AM ANNEALER HELPER Hospital Encounter [facility] [address] [place] [address] 04/22/2024 11:15 AM ANNEALER HELPER Hospital Encounter [facility] [address] [place] [address] Procedures Procedure Name Priority Date/Time Associated Diagnosis Comments SONOGRAM - COMPLETE Routine 04/01/2024 1 1:20 AM ANNEALER HELPER 24 weeks gestation of (HCC) History of delivery, currently (HCC) Bicornuate uterus Encounter for anatomic survey (HCC) Short interval between pregnancies affecting in second trimester, antepartum (HCC) Obesity affecting in second trimester, unspecified obesity type (HCC) SONOGRAM - COMPLETE Routine 03/04/2024 1 1:08 AM ANNEALER HELPER History of delivery, currently (HCC) Bicornuate uterus Body mass index (BMI) 37.0-37.9, adult 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, antepartum (HCC) 32 weeks gestation of (HCC) ECHO COMPLETE CG Routine 01/14/2024 11:18 AM ANNEALER HELPER 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 Linked Results Indication ======== Suspected accelerated growth Class II obesity Bicornuate uterus G1: PPROM & 35 week on 06/30/22 (short IPI) History ====== OB History 2. Para 1 [id number] 1. live . Gest. age 34 w [...] (or sooner if indicated) Coding ====== Procedures 59916: [place] [address]: Biophysical Profile W/O NST [employer] PACS Anatomical Region Laterality Modality Other 04/01/2024 11:2 0 AM ANNEALER HELPER Jessica Arias MD [facility] ORDERABLES * ECHO COMPLETE CG (01/14/2024 11:18 AM ANNEALER HELPER) MV E pk fahad 26.76 cm/s [facility] CV F UJI PACS MV A pk fahad 51.4 cm/s [facility] CV F UJI PACS Anatomical Region Laterality Modality Ultrasound 01/14/2024 10:4 1 AM ANNEALER HELPER Narrative 01/14/2024 2:44 PM ANNEALER HELPER Name: Beatriz Ramos Patient Exam Info Gender: Female Patient Status: O/P : 1995 Admit Date: 01/14/2024 Exam Date/Time: 01/14/2024 10:41 AM Site: [facility] Current Location: CARE EStudy Quality: Diagnostic quality Staff Ordering Provider: Walter Fregoso Interpreting Physician: Deisy Weber MD Pipe Fitter Supervisor: Annia Bacon JT Study Info Procedure: ECHO COMPLETE CG Indications: [...] 01/14/2024 Exam Date/Time: 01/14/2024 10:41 AM Site: [facility] Current Location: CARE EStudy Quality: Diagnostic quality Staff Ordering Provider: Walter Fregoso Interpreting Physician: Deisy Weber MD Pipe Fitter Supervisor: Annia Bacon [facility] Study Info Procedure: ECHO COMPLETE CG [...] Weber MD on 01/14/2024 02:44 PM Walter FERGUSON from Last 3 Months Beatriz Ramos Personal/Famil y Self 1995
[2024-04-05 15:34] LABS: Specific Gravity Ur 1.019
[2024-04-05 15:55] LABS: Creatinine Clearance Urine 173.1 ml/min (75-125); Creatinine Urine 169.6 mg/dL; Serum Creat 0.45
[2024-04-05 16:07] LABS: Total Protein Urine 24 Hr 40 mg/24hr (28-141); Total Protein Urine Random < 5 mg/dL
== END 2024-04-05 13:41 | disposition home or self-care (01) ==
PROVIDERS: Visit Provider Obstetrics & Gynecology
DX: O13.9 Gestational [pregnancy-induced] hypertension without significant proteinuria, unspecified trimester (principal); Z3A.00 Weeks of gestation of pregnancy not specified
CPT/HCPCS: 81050; 82575; 84156

== ENCOUNTER 2024-04-08 06:28 | Inpatient (IN) | payer BC, SELFPAY ==
[2024-04-08] VITALS (128 sets, daily range): BP systolic 76–137; BP diastolic 34–94; PULSE 56–127; RESP 16–18; TEMP 36.4–36.9; O2SAT 94–100; BMI 38.3
--- OUTSIDE RECORDS SUMMARY | 2024-04-08 06:53 | XMS_ITS | Referral Summary ---
Author Organization [facility] Address [address] [facility] [place] [address] Care Team Providers Care Scalder Name Role Phone Unavailable Primary Care Provider Unavailabl e Source Comments [facility],non-owned Affiliates and Associated Physician Practices is amultiple site organization consisting of ambulatory clinics and hospital sitesin [place], [place], [place] and [place]. This disclosure is being madepursuant to the Care Everywhere program and may not contain all information available regarding this patient. Last updated 17.[facility] Encounters Date Type Department Care Team Description 04/08/2024 11:15 AM VASCULAR RADIOLOGIST Hospital Encounter [facility] Maternal & Care [address] [place] [address] Heidy Shelley MD CONCRETE BATCHING PLANT OPERATOR 04/01/2024 11:03 AM VASCULAR RADIOLOGIST - 04/01/2024 11:59 PM VASCULAR RADIOLOGIST Hospital Encounter [facility] [address] [place] [address] Jose Hills MD Tomlinson, Tracy M, MD Discharge Disposition: Home or Self Care 03/04/2024 Travel 03/04/2024 10:58 AM VASCULAR RADIOLOGIST - 03/04/2024 11:59 PM VASCULAR RADIOLOGIST Hospital Encounter [facility] [address] [place] [address] Juanis Poon MD Head, Genie Murphy MD Discharge Disposition: Home or Self Care 01/14/2024 10:33 AM VASCULAR RADIOLOGIST Hospital Encounter [facility] [place] [address] [place] [address] Deisy Weber MD Discharge Disposition: Home or Self Care 01/14/2024 10:34 AM VASCULAR RADIOLOGIST - 01/14/2024 11:59 PM VASCULAR RADIOLOGIST Hospital Encounter [facility] [address] [address] Walter Fregoso MD Peterson, Renuka E., MD Discharge Disposition: Home or Self Care 01/08/2024 11:09 AM VASCULAR RADIOLOGIST - 01/08/2024 11:59 PM VASCULAR RADIOLOGIST Hospital Encounter [facility] Maternal & Care [address] [place], [place] [phone] Heidy Shelley MD CONCRETE BATCHING PLANT OPERATOR Discharge Disposition: Home or Self Care from [...] st Contact Info) Description 04/08/2024 11:15 AM VASCULAR RADIOLOGIST Hospital Encounter [facility] & Care [address] [place] [phone] Heidy Shelley MD [address] [facility] [address] [place] [phone] CONCRETE BATCHING PLANT OPERATOR 04/15/2024 11:15 AM VASCULAR RADIOLOGIST Hospital Encounter [facility] Care [address] [place] [address] 04/22/2024 11:15 AM VASCULAR RADIOLOGIST Hospital Encounter [facility] [address] [place] [address] Procedures Procedure Name Priority Date/Time Associated Diagnosis Comments SONOGRAM - COMPLETE Routine 04/01/2024 1 1:20 AM VASCULAR RADIOLOGIST 24 weeks gestation of (HCC) History of delivery, currently ([facility]) Bicornuate uterus Encounter for anatomic survey ([facility]) Short interval between pregnancies affecting in second trimester, antepartum (HCC) Obesity affecting in second trimester, unspecified obesity type ([facility]) SONOGRAM - COMPLETE Routine 03/04/2024 1 1:08 AM VASCULAR RADIOLOGIST History of delivery, currently (HCC) Bicornuate uterus Body mass index (BMI) 37.0-37.9, adult 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, antepartum (HCC) 32 weeks gestation of (HCC) ECHO COMPLETE CG Routine 01/14/2024 11:18 AM VASCULAR RADIOLOGIST 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 Linked Results Indication ======== Suspected accelerated growth Class II obesity Bicornuate uterus G1: PPROM & 35 week on 06/30/22 (short IPI) History ====== OB History 2. Para 1 [id number] 1. live . Gest. age 34 w [...] (or sooner if indicated) Coding ====== Procedures 17396: [place] [address]: Biophysical Profile W/O NST [facility] [employer] PACS Anatomical Region Laterality Modality Other 04/01/2024 11:2 0 AM VASCULAR RADIOLOGIST Jessica Arias MD [facility] ORDERABLES * ECHO COMPLETE CG (01/14/2024 11:18 AM VASCULAR RADIOLOGIST) MV E pk fahad 26.76 cm/s [facility] CV F UJI PACS MV A pk fahad 51.4 cm/s [facility] CV F UJI PACS Anatomical Region Laterality Modality Ultrasound 01/14/2024 10:4 1 AM VASCULAR RADIOLOGIST Narrative 01/14/2024 2:44 PM VASCULAR RADIOLOGIST Name: Beatriz Ramos Patient Exam Info Gender: Female Patient Status: O/P : 1995 Admit Date: 01/14/2024 Exam Date/Time: 01/14/2024 10:41 AM Site: [facility] Current Location: CARE EStudy Quality: Diagnostic quality Staff Ordering Provider: Walter Fregoso Interpreting Physician: Deisy Weber MD Machine Setter Sheet Metal: Annia Bacon [facility] Study Info Procedure: ECHO COMPLETE [...] 01/14/2024 Exam Date/Time: 01/14/2024 10:41 AM Site: [facility] Current Location: CARE EStudy Quality: Diagnostic quality Staff Ordering Provider: Walter Fregoso Interpreting Physician: Deisy Weber MD Machine Setter Sheet Metal: Annia Bacon [facility] Study Info Procedure: ECHO COMPLETE [...]
--- OUTSIDE RECORDS SUMMARY | 2024-04-08 06:53 | XMS_ITS | Patient Health Summary ---
Author Organization [facility] Address [address] [facility] [place] [address] Care Team Providers Care Green Feed Attendant Name Role Phone Unavailable Primary Care Provider Unavailabl e Note from [facility],non-owned Affiliates and Associated Physician Practices is amultiple site organization consisting of ambulatory clinics and hospital sitesin [place], [place], [place] and [place]. This disclosure is being madepursuant to the Care Everywhere program and may not contain all information available regarding this patient. Last updated 17.[facility] Allergies * Sulfa Drugs(Urticaria) -Medium Criticality [...] 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 child, antepartum ([facility]) * SONOGRAM - COMPLETE(Performed 01/08/2024) Performed [...] trimester, antepartum (HCC), Encounter for anatomic survey ([facility]), Body mass index (BMI) 37.0-37.9, adult, History of premature rupture of membranes (PPROM), Encounter for screening for cervical length ([facility]) * SONOGRAM - COMPLETE(Performed 12/11/2023) Performed for History of delivery, currently (HCC), Bicornuate uterus, Short interval between pregnancies affecting in second trimester, antepartum (HCC), Encounter for anatomic survey ([facility]), Body mass index (BMI) 37.0-37.9, adult, History of premature rupture of membranes (PPROM), Encounter for screening for cervical length ([facility]) * SONOGRAM - COMPLETE(Performed 11/27/2023) Performed for Encounter for follow-up ultrasound of anatomy ([facility]) * SONOGRAM - COMPLETE(Performed 11/11/2023) Performed for History of delivery, currently ([facility]), Bicornuate uterus, Short interval between pregnancies affecting in second trimester, antepartum ([facility]), Encounter for anatomic survey ([facility]), Body mass index (BMI) 37.0-37.9, adult, History of premature rupture of membranes (PPROM), Encounter for screening for cervical length ([facility]) Results * SONOGRAM - COMPLETE (04/01/2024 11:20 AM DATABASE TESTER) Only the most recent of7 resultswithin the time period is included. Linked Results Indication ======== Suspected accelerated growth Class II obesity Bicornuate uterus G1: PPROM & 35 week on 06/30/22 (short IPI) History ====== OB History 2. Para 1 [id number] 1. live . Gest. age 34 w [...] (or sooner if indicated) Coding ====== Procedures 22722: [place] [address]: Biophysical Profile W/O NST [employer] PACS Anatomical Region Laterality Modality Other 04/01/2024 11:2 0 AM DATABASE TESTER Jessica Arias MD [facility] ORDERABLES * ECHO COMPLETE CG (01/14/2024 11:18 AM DATABASE TESTER) MV E pk fahad 26.76 cm/s [facility] CV F UJI PACS MV A pk fahad 51.4 cm/s [facility] CV F UJI PACS Anatomical Region Laterality Modality Ultrasound 01/14/2024 10:4 1 AM DATABASE TESTER Narrative 01/14/2024 2:44 PM DATABASE TESTER Name: Beatriz Ramos Patient Exam Info Gender: Female Patient Status: O/P : 1995 Admit Date: 01/14/2024 Exam Date/Time: 01/14/2024 10:41 AM Site: [facility] Current Location: CARE EStudy Quality: Diagnostic quality Staff Ordering Provider: Walter Fregoso Interpreting Physician: Deisy Weber MD Product Finisher: Annia Bacon [facility] Study Info Procedure: ECHO COMPLETE [...] 01/14/2024 Exam Date/Time: 01/14/2024 10:41 AM Site: [facility] Current Location: CARE EStudy Quality: Diagnostic quality Staff Ordering Provider: Walter Fregoso Interpreting Physician: Deisy Weber MD Product Finisher: Annia Bacon [facility] Study Info Procedure: ECHO COMPLETE [...] on 01/14/2024 02:44 PM Walter Fregoso MD [facility]
--- OUTSIDE RECORDS SUMMARY | 2024-04-08 06:53 | XMS_ITS | Clinical Summary ---
Author Organization [facility] Address [address] [facility] [place] [address] Care Team Providers Care Technical Services Specialist Name Role Phone Unavailable Primary Care Provider Unavailabl e Source Comments [facility],non-owned Affiliates and Associated Physician Practices is amultiple site organization consisting of ambulatory clinics and hospital sitesin [place], [place], [place] and [place]. This disclosure is being madepursuant to the Care Everywhere program and may not contain all information available regarding this patient. Last updated 17.[facility] Allergies Active Allergy Reactions Criticality Noted [...] Department Care Team Description 04/08/2024 11:15 AM PRESCRIPTION CLERK Hospital Encounter [facility] Maternal & Care [address] [place] [address] Heidy Shelley MD MANAGER FINANCE 04/01/2024 11:03 AM PRESCRIPTION CLERK - 04/01/2024 11:59 PM PRESCRIPTION CLERK Hospital Encounter [facility] Maternal & Care [address] [place] [address] Jose Hills MD Tomlinson, Tracy M, MD Discharge Disposition: Home or Self Care 03/04/2024 10:58 AM PRESCRIPTION CLERK - 03/04/2024 11:59 PM PRESCRIPTION CLERK Hospital Encounter [facility] Maternal & Care [address] [place] [address] Juanis Poon MD Head, Genie Murphy MD Discharge Disposition: Home or Self Care 03/04/2024 Travel 01/14/2024 10:34 AM PRESCRIPTION CLERK - 01/14/2024 11:59 PM PRESCRIPTION CLERK Hospital Encounter [facility] [address] [address] Walter Fregoso MD Peterson, Renuka E., MD Discharge Disposition: Home or Self Care 01/14/2024 10:33 AM PRESCRIPTION CLERK Hospital Encounter [address] [address] Deisy Weber MD Discharge Disposition: Home or Self Care 01/08/2024 11:09 AM PRESCRIPTION CLERK - 01/08/2024 11:59 PM PRESCRIPTION CLERK Hospital Encounter [facility] Maternal & Care [address] [place] [address] Heidy Shelley MD MANAGER FINANCE Discharge Disposition: Home or Self Care from [...] st Contact Info) Description 04/08/2024 11:15 AM PRESCRIPTION CLERK Hospital Encounter [facility] Maternal & Care [address] [place] [address] Heidy Shelley MD [address] [facility] [address] [place] [address] MANAGER FINANCE 04/15/2024 11:15 AM PRESCRIPTION CLERK Hospital Encounter [facility] Maternal & Care [address] [place] [address] 04/22/2024 11:15 AM PRESCRIPTION CLERK Hospital Encounter [facility] Maternal & Care [address] [place] [address] Health Maintenance Due Date Last Done Comments [...] - COMPLETE Routine 04/01/2024 1 1:20 AM PRESCRIPTION CLERK 24 weeks gestation of (HCC) History of delivery, currently (HCC) Bicornuate uterus Encounter for anatomic survey (HCC) Short interval between pregnancies affecting in second trimester, antepartum (HCC) Obesity affecting in second trimester, unspecified obesity type (HCC) SONOGRAM - COMPLETE Routine 03/04/2024 1 1:08 AM PRESCRIPTION CLERK History of delivery, currently (HCC) Bicornuate uterus Body mass index (BMI) 37.0-37.9, adult 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, antepartum (HCC) 32 weeks gestation of (HCC) ECHO COMPLETE CG Routine 01/14/2024 11:18 AM PRESCRIPTION CLERK 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 Linked Results Indication ======== Suspected accelerated growth Class II obesity Bicornuate uterus G1: PPROM & 35 week on 06/30/22 (short IPI) History ====== OB History 2. Para 1 [id number] 1. live . Gest. age 34 w [...] (or sooner if indicated) Coding ====== Procedures 07033: [place] [address]: Biophysical Profile W/O NST [employer] Anatomical Region Laterality Modality Other 04/01/2024 11:2 0 AM PRESCRIPTION CLERK Jessica Arias MD [facility] ORDERABLES * ECHO COMPLETE CG (01/14/2024 11:18 AM PRESCRIPTION CLERK) MV E pk fahad 26.76 cm/s [facility] CV F U PACS MV A pk fahad 51.4 cm/s [facility] CV F UJI PACS Anatomical Region Laterality Modality Ultrasound 01/14/2024 10:4 1 AM PRESCRIPTION CLERK Narrative 01/14/2024 2:44 PM PRESCRIPTION CLERK Name: Beatriz Ramos Patient Exam Info Gender: Female Patient Status: O/P : 1995 Admit Date: 01/14/2024 Exam Date/Time: 01/14/2024 10:41 AM Site: [facility] Current Location: CARE EStudy Quality: Diagnostic quality Staff Ordering Provider: Walter Fregoso Interpreting Physician: Deisy Weber MD Digital Technician: Annia Bacon [facility] Study Info Procedure: ECHO COMPLETE CG [...] 01/14/2024 Exam Date/Time: 01/14/2024 10:41 AM Site: [facility] Current Location: CARE EStudy Quality: Diagnostic quality Staff Ordering Provider: Walter Fregoso Interpreting Physician: Deisy Weber MD Digital Technician: Annia Bacon [facility] Study Info Procedure: ECHO COMPLETE CG [...]
--- OUTSIDE RECORDS SUMMARY | 2024-04-08 06:53 | XMS_ITS | Encounter Summary ---
Author Organization [facility] Address [facility] [place] [address] Care Team Providers Care Helicopter Crew Chief Name Role Phone Unavailable Primary Care Provider Unavailabl e Reason for Visit * Reason Comments Ultrasound Encounter Details Date Type Department Care Team (Late st Contact Info) Description 04/08/2024 11:15 AM VOLUNTEER COORDINATOR Hospital Encounter [facility]aternal & Care [address] [place] [id number] Heidy Shelley MD [address] [place] [address] [employer] Social History Tobacco Use Types Packs/Day Years Used Date Smoking Tobacco: Never Smokeless Tobacco: Never Alcohol Use Standard Drinks/Week Comments Never 0 (1 standard drink = 0.6 oz pur e alcohol) Estimated Date of Delivery Comme nts Yes 04/25/2024 Based on last me nstrual period of 07/20/2023 Sex and Gender Information Value Date Recorded Sex Assigned at Not on file Gender Identity Not on file Sexual Orientation Not on file documented as of this encounter Plan of Treatment Upcoming Encounters Date Type Department Care Team (Late st Contact Info) Description 04/15/2024 11:15 AM VOLUNTEER COORDINATOR Hospital Encounter [facility] Maternal & Care [address] [place] [id number] 04/22/2024 11:15 AM VOLUNTEER COORDINATOR Hospital Encounter [facility]aternal [facility] Care [address] [place] [phone] documented as of this encounter Visit Diagnoses Diagnosis 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, antepartum (HCC)- Primary 37 weeks gestation of ([facility]) state, incidental Bicornuate uterus Body mass index (BMI) 37.0-37.9, adult History of delivery, currently ([facility]) with history of pre-term labor Encounter for ultrasound to assess growth (HCC) 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, antepartum (HCC)- Primary 39 weeks gestation of ([facility]) state, incidental Bicornuate uterus Body mass index (BMI) 37.0-37.9, adult History of delivery, currently ([facility]) with history of pre-term labor Encounter for ultrasound to assess growth (HCC) 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
[2024-04-08 07:28] LABS: Basophils Percent Auto 0.4 % (0.2-1.2); Eosinophils Absolute Auto 0.1 K/mm3 (0-0.3); Eosinophils Percent Auto 1.2 % (0-4.4); Hematocrit 35.6 % (37.0-47.0); Hemoglobin 11.4 g/dL (12.0-15.0); Immature Granulocyte Absolute 0.02 K/mm3 (0.00-0.031); Immature Granulocyte Percent A 0.3 % (0-0.5); Immature Platelet Fraction Pct 8.9 % (0.9-11.2); Lymphocytes Absolute Auto 1.76 K/mm3 (0.9-3.2); Lymphocytes Percent Auto 25.5 % (18.3-44.2); Mean Corpuscular Hemoglobin 25.1 pg (26-34); Mean Corpuscular Volume 78.2 fl (80-100); Mean Platelet Volume 11.6 fl (7.4-10.4); Monocytes Absolute Auto 0.5 K/mm3 (0.1-0.6); Monocytes Percent Auto 7.1 % (2.6-8.5); Neutrophils Absolute Auto 4.5 K/mm3 (1.3-6.7); Neutrophils Percent Auto 65.5 % (45.5-73.1); Platelet Count Result 174 k/mm3 (150-375); Red Blood Count 4.55 M/mm3 (4.2-5.4); Red Cell Distribution Width 18.8 % (11.5-14.5); White Blood Count 6.9 K/mm3 (4.5-10.0)
[2024-04-08] MEDS: LACTATED RINGERS 1,000 ML 125 ML IV CONT ×2 (07:32→09:57)
[2024-04-08] MEDS: OXYTOCIN 30 UNITS/NS 500 ML 30 UNITS/500 ML BAG IV CONT (07:35)
[2024-04-08 07:44] LABS: Uric Acid 4.9 mg/dL (2.5-7.5)
[2024-04-08 07:47] LABS: Alanine Aminotransferase 17 U/L (6-35); Albumin Level 3.4 g/dL (3.5-5.1); Alkaline Phosphatase 190 U/L (38-126); Anion Gap 11 mmol/L (4-12); Aspartate Amino Transferase 19 U/L (14-36); Bilirubin,Total 0.9 mg/dL (0.2-1.3); Blood Urea Nitrogen 5 mg/dL (7-17); Calcium 8.7 mg/dL (8.4-10.2); Carbon Dioxide 17 mmol/L (22-30); Chloride 108 mmol/L (98-107); Estimated Glomerular Filt Rate > 60; Glucose 84 mg/dL (65-110); Potassium 3.6 mmol/L (3.4-5.0); Sodium 136 mmol/L (137-145)
--- NOTE | 2024-04-08 07:53 | PM.IMHP ---
H&P: HPI History of Present Illness Date/Time: 04/08/24 07:53 Chief Complaint: leakage of fluid Narrative: Beatriz is a 28yo @ 37.4wks who presents w/ leakage of clear fluid since 0500. She reports good movement. Irregular mild contractions. No vaginal bleeding. Her is complicated by: - PPROM @ 35wks -- had cervical lengths 16-24wks. - Short inter- interval - Obesity--- needs ASA @ 12wks, early glucose - Bicornuate uterus; on right horn - First daughter with CHD; normal echo - [facility] --> cephalic on 04/04/24 Review of Systems Constitutional: Constitutional: Denies chills, Denies fever(s) and Denies headache(s) Eyes: Eyes: Denies change in vision ENT: Denies headache(s) Cardiovascular: Cardiovascular: Denies chest pain and Denies dyspnea Respiratory: Respiratory: Denies dyspnea Genitourinary: Genitourinary: Denies abnormal vaginal bleeding and Reports vaginal discharge Neurologic: Denies headache(s) Psychiatric: Psychiatric: Denies anxiety and Denies depression [facility] Past Medical History Medical History Morbid obesity with BMI of 50.0-59.9, adult Blood glucose abnormal Suppression of menses Encounter for IUD removal (12/05/21) 12/05/2021 Encounter for insertion of mirena IUD (11/04/17) 2018 Healthy female adult Surgical History Surgical History No history of previous surgery Family History Family History (Updated 04/08/24 @ 07:58 by Jessica Hernandez RN) Other No pertinent family history in first degree relatives Social History Social History Smoking status: Never smoker Alcohol intake: never Substance use: never Do You Feel Safe in your Home?: Yes Lack of Transportation: No Lack of Food: Never True Current Housing: I Have Housing Concerned About Future Housing: No Difficulty Paying Gas/Electric Bills: No Difficulty Paying for Meds: No Currently Unemployed: No Education: Master's Degree or Higher Difficulty w/ Childcare or Family Care: No Living arrangements: with family Additional living arrangements comments: Occupation/Education: 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 Gender identity (if verbalized by the patient): Female Sexual Orientation (if Verbalized by the Patient): Straight or Heterosexual Spiritual care concerns: No Meds Home Medications and Allergies Home Medications ?Medication ?Instructions ?Recorded ?Confirmed ?Type docosahexaenoic acid 200 mg 200 mg PO DAILY 09/10/23 04/08/24 History capsule ( DHA) ferrous sulfate 325 mg (65 mg 325 mg PO DAILY 03/08/24 04/08/24 History iron) tablet Allergies Allergy/AdvReac Type Severity Reaction Status Date / Time Sulfa (Sulfonamide Allergy Hives Verified 04/08/24 07:47 Antibiotics) Vital Signs Vital Signs - 24 hr 04/08/24 07:03 04/08/24 07:16 04/08/24 07:31 Pulse Rate 99 83 103 H Blood Pressure 128/85 137/89 121/74 04/08/24 07:35 04/08/24 07:46 Pulse Rate 73 89 Blood Pressure 128/81 128/83 Exam Const: General: cooperative, no acute distress and obese Nutritional Appearance: obese Orientation/consciousness: patient oriented x3 Resp: Effort & Inspection: normal respiratory effort Cardio: Rate: regular rate GI: GI Palp: No abdominal tenderness : Other: FHT's: 130's/ mod jeramy/ + accels/ no decels - cat 1 TOCO: no ctxs Cervix: 3/70/-2 Membranes: SROM, clear 0500 Presentation: cephalic Skin: General skin exam: normal color Neuro: General: patient oriented x3 Extrem: General: normal to inspection Psych: Appearance: grossly normal Affect: normal affect Attitude: cooperative H&P: Results Labs Labs: Short CBC 04/08/24 Range/Units 07:18 WBC 6.9 (4.5-10.0) K/mm3 Hgb 11.4 L (12.0-15.0) g/dL Hct 35.6 L (37.0-47.0) % Plt Count 174 (150-375) k/mm3 BMP 04/08/24 07:18 Sodium 136 L Potassium 3.6 Chloride 108 H Carbon Dioxide 17 L BUN 5 L Creatinine 0.44 L Glucose 84 Calcium 8.7 Liver Function 04/08/24 Range/Units 07:18 Total Bilirubin 0.9 (0.2-1.3) mg/dL AST 19 (14-36) U/L ALT 17 (6-35) U/L Alkaline Phosphatase 190 H (38-126) U/L Albumin 3.4 L (3.5-5.1) g/dL Assessment and Plan Assessment and plan (1) Spontaneous rupture of amniotic membranes: Status: Acute Plan - will start pitocin augmentation as she is not monica, ROM+ positive - continuous monitoring; currently reassuring - GBS neg - Anesthesia consult PRN pain
--- NOTE | 2024-04-08 07:55 | LDADM ---
This patient, Beatriz Ramos, was admitted to Labor/Delivery/Recovery 103 on 04/08/24 at 06:28. Plans for labor, pain management and were discussed with patient. Patient/family oriented to hospital policies and general routines including ID bracelet, bed and alarms, visiting hours, pain management, procedures, bathroom and other care routines, personal items, smoking policy, room service/diet and guest tray routines, infant security routines, and visiting hours. Patient/Family are encouraged to report perceived risks to care and to ask questions if they do not understand what they are told or what they should do. See OBIX for further documentation.
[2024-04-08 08:10] LABS: Rapid Plasma Reagin Non-Reactive (NonReactive)
[2024-04-08 08:19] LABS: HIV 1/2 Ab P24 Ag Result Negative (Negative)
--- NOTE | 2024-04-08 12:28 | P.PCNOB_ITS ---
OB - Vaginal Delivery Note Procedure Delivery date: 04/08/24 Delivery augmentation: Pitocin Delivery monitor: External FHT and Internal Uterine Route of delivery: Episiotomy description: None Laceration Description: Perineal - 1st Degree Delivery repair: vicryl Quantitative Blood Loss (ml): 250 Anesthesia type: Epidural Disposition: Floor Complications: No immediate complications [place] Baby Date of : 04/08/24 Time of : 12:12 Gestational Age by Date: 37 (.4) gender: Male presentation: vertex Placenta delivery description: Expressed Cord Vessel Description: 3 Vessels, Nuchal Cord, Loose and Delayed Cord Clamping score one minute: 9 score five minutes: 9 Narrative: Beatriz rapidly progressed from 3-5 cm to completely dilated with strong desire to push. She pushed for approximately 10 minutes with good maternal effort and delivered the head over intact perineum. Nuchal cord x1 was noted but loose and delivered through. She easily delivered the infant's shoulders and body without complication. The infant was immediately placed on the maternal abdomen and spontaneous cry was heard. Delayed cord clamping was performed. The umbilical cord was then doubly clamped and cut. A segment of the cord was collected for cord gases. The remaining cord blood was collected for typing. With Pitocin running and gentle downward traction on the cord, the placenta delivered without complication. Bimanual massage was performed and good uterine tone with minimal bleeding was noted. She was examined and a first-degree perineal laceration was identified. The perineal laceration was repaired in the normal manner using 2-0 Vicryl. Good hemostasis was noted. Her uterus remained firm with minimal bleeding. Sponge, lap, instrument, and needle counts were correct at the end of the procedure. Mom and baby were left bonding in the birthing suite in stable condition.
[2024-04-08] MEDS: OXYTOCIN 30 UNITS/NS 500 ML 30 UNITS/500 ML BAG 125 UNITS IV CONT (12:53)
[2024-04-08 13:11] LABS: OBXCEM ROM Plus Positive (Negative)
[2024-04-08] MEDS: BENZOCAINE 20% AER SPR (*SP) 56 GM CAN 1 SPRAY TOPICAL (14:39)
[2024-04-08] MEDS: WITCH HAZEL 40 PADS 1 PAD TOPICAL (14:39)
--- NOTE | 2024-04-08 15:03 | PC.NURSE ---
Patient transferred to post room #283 via wheelchair. Support person present. Oriented to unit, room, information board, rooming in, admission packet and security measures. Patient verbalizes understanding.
[2024-04-09 05:26] VITALS: BP 105/61; PULSE 72; RESP 18; TEMP 36.4; O2SAT 100
[2024-04-09 05:30] LABS: Hematocrit 31.3 % (37.0-47.0); Hemoglobin 9.9 g/dL (12.0-15.0); Immature Platelet Fraction Pct 7.1 % (0.9-11.2); Mean Corpuscular HGB Conc 31.6 g/dl (32-36); Mean Platelet Volume 11.8 fl (7.4-10.4); Platelet Count Result 135 k/mm3 (150-375); Red Blood Count 3.96 M/mm3 (4.2-5.4); Red Cell Distribution Width 18.7 % (11.5-14.5); White Blood Count 7.5 K/mm3 (4.5-10.0)
[2024-04-09 08:00] VITALS: BP 115/69; PULSE 74; RESP 16; TEMP 36.9; O2SAT 98
[2024-04-09] MEDS: IBUPROFEN 600 MG TABLET PO (08:00)
[2024-04-09] MEDS: POLYSACCHARIDE IRON COMPLEX 150 MG CAPSULE PO ×2 (08:02→17:28)
[2024-04-09] MEDS: DOCUSATE SODIUM 100 MG CAPSULE PO ×2 (08:02→17:28)
[2024-04-09] MEDS: MULTIVIT/MIN/PREN/FOL AC/IRON TABLET 1 TAB PO (08:02)
--- NOTE | 2024-04-09 09:31 | P.PNOB_ITS ---
OB - PN: Subj Subjective Date/time seen: 04/09/24 09:31 Narrative: PPD#1 Beatriz reports doing well today. 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 Her pain is controlled. She is tolerating regular diet, voiding, passing gas, and ambulating without issues. She is breast feeding. She would like her son circumcised. OB - PN: Obj Data Labs 04/09/24 05:19 04/08/24 07:18 Labs: Laboratory Results - last 24 hr 04/08/24 04/09/24 06:50 05:19 WBC 7.5 RBC 3.96 L Hgb 9.9 L Hct 31.3 L MCV 79.0 L MCH 25.0 L MCHC 31.6 L RDW 18.7 H Plt Count 135 L MPV 11.8 H % Immature Plt Fraction 7.1 Membranes Rupture Rom plus positive OB - PN A/P Assessment and Plan (1) Normal vaginal delivery of second : Code(s): O80 - Encounter for full-term uncomplicated delivery Status: Acute Plan day: 1 Plan: routine care Comments: - PO pain meds - Regular diet - Ambulation and hydration encouraged - Continue putting baby to breast/pumping q2-3hr - Circumcision performed w/o issue Time Spent With Patient Time: Total time spent is greater than 50% in coordination of care (as documented) at patient's floor/unit and/or counseling patient: Review of Systems 2 Constitutional: Constitutional: Denies chills, Denies fever(s) and Denies headache(s) Eyes: Eyes: Denies change in vision ENT: Denies dizziness and Denies headache(s) Cardiovascular: Cardiovascular: Denies chest pain, Denies palpitations and Denies dyspnea Respiratory: Respiratory: Denies cough and Denies dyspnea Gastrointestinal: Gastrointestinal: Denies nausea and Denies vomiting Neurologic: Denies dizziness and Denies headache(s) Endocrine: Endocrine: Denies palpitations Exam 2 Const: General: cooperative, comfortable and no acute distress O rientation/consciousness: patient oriented x3 Resp: Effort & Inspection: normal respiratory effort Auscultation: clear to auscultation bilaterally Cardio: Rate: regular rate GI: Inspection: non-distended GI Palp: No abdominal tenderness and Yes Soft to palpation Auscultation: normal bowel sounds : Other: fundus firm Skin: General skin exam: normal color Neuro: General: patient oriented x3 Extrem: General: normal to inspection Psych: Appearance: grossly normal Affect: normal affect Attitude: c ooperative
--- NOTE | 2024-04-09 11:00 | PC.NURSE ---
Introductions were made, then consulted with patient to assess needs related to . Discussed with mother her?plans to feed?her and the?experience so far. Mother is still using her breast pump and baby is bottle feeding well, no questions or concerns. Resources provided for inpatient and outpatient services with the feeding sheet, mom/baby guide and name written on the communication board. Mother voiced understanding of information and will call if there is a request for assistance. Reported to the Primary RN.
[2024-04-09 21:06] VITALS: BP 115/74; PULSE 78; RESP 16; TEMP 36.9; O2SAT 99
[2024-04-10 07:30] VITALS: BP 111/87; PULSE 77; RESP 16; TEMP 36.8; O2SAT 98
[2024-04-10] MEDS: DOCUSATE SODIUM 100 MG CAPSULE PO (07:34)
[2024-04-10] MEDS: POLYSACCHARIDE IRON COMPLEX 150 MG CAPSULE PO (07:34)
[2024-04-10] MEDS: MULTIVIT/MIN/PREN/FOL AC/IRON TABLET 1 TAB PO (07:35)
--- NOTE | 2024-04-10 07:44 | PC.NURSE ---
Patient was given the opportunity to view the discharge video Mother & Baby Care, The First Two Weeks and to ask questions. Patient declined viewing the video and has been given the mother/baby guide for home reference.
--- NOTE | 2024-04-10 09:53 | PM.OBDSVD ---
DS: Admitting Diagnosis Discharge Date 04/10/24 Admitting Diagnosis SROM DS: Discharge Diagnosis Discharge Diagnosis (1) Normal vaginal delivery of second : Code(s): O80 - Encounter for full-term uncomplicated delivery Status: Acute OB - DS: Summary OB Procedures : Ultrasound OB Procedures Intrapartum: Spontaneous Vag Delivery OB Procedures: : None Peripartum Data Delivery Method: Natural Vaginal Laceration Description: Perineal - 1st Degree Episiotomy description: None complications: none 1: Gender: Male Disposition of : home Status at Discharge Functional status at discharge: independent ambulation Overall status at discharge: patient is back to baseline Time Spent with Patient Time attestation: Total time spent providing and/or coordinating discharge services: Exam Const: General: cooperative, comfortable, no acute distress and obese Orientation/consciousness: patient oriented x3 Resp: Effort & Inspection: normal respiratory effort Auscultation: clear to auscultation bilaterally Cardio: Rate: regular rate GI: Inspection: non-distended GI Palp: No abdominal tenderness and Yes Soft to palpation Auscultation: normal bowel sounds : Other: fundus firm Skin: General skin exam: normal color Neuro: General: patient oriented x3 Extrem: General: normal to inspection Psych: Appearance: grossly normal Affect: normal affect Attitude: cooperative Discharge Plan Discharge Attending physician on discharge: Jessica Arias Discharging Clinician: Jessica Arias Anticipated Discharge Date/Time: 04/10/24 11:00 Patient Disposition: Home, Self-Care Activity: may shower and pelvic rest Diet: regular Patient Instructions: Antibiotic Form, Vaginal Delivery (DC) Patient Language: Turkish Stand Alone Forms: General Discharge Information Follow-up/Referrals: Jessica Arias MD [Physician] - 4 Weeks Discharge Medications: New acetaminophen 325 mg Tablet 650 mg PO Q6H PRN (Reason: Mild Pain (1-3) Or Headache) Qty: 60 0RF docusate sodium 100 mg Capsule 100 mg PO BID PRN (Reason: Constipation) Qty: 90 0RF ibuprofen 600 mg Tablet 600 mg PO Q6H PRN (Reason: Cramping) Qty: 40 0RF Continued DHA 200 mg capsule 200 mg PO DAILY ferrous sulfate 325 mg (65 mg iron) tablet 325 mg PO DAILY Date of admission: 04/08/24 06:28 Primary Care Provider: PHYSICIAN,GEOPHYSICAL OBSERVER Admitting Provider: Jessica Arias Attending physician on admission: Jessica Arias Condition: Stable
[2024-04-12 09:38] VITALS: BP 135/72; PULSE 81; RESP 18; TEMP 36.7; O2SAT 99
== END 2024-04-10 11:05 | disposition home or self-care (01) | DRG 807 ==
LOC: ANHLDR 07:20 → ANHOB2 15:17
PROVIDERS: Admitting Provider Obstetrics & Gynecology; Visit Provider Obstetrics & Gynecology
DX: O34.03 Maternal care for unspecified congenital malformation of uterus, third trimester (principal); Z37.0 Single live birth; Q51.3 Bicornate uterus; O99.214 Obesity complicating childbirth; E66.01 Morbid (severe) obesity due to excess calories; O69.81X0 Labor and delivery complicated by cord around neck, without compression, not applicable or unspecified; O70.0 First degree perineal laceration during delivery; Z3A.37 37 weeks gestation of pregnancy
CPT/HCPCS: 36415; 80053; 84112; 84550; 85025; 85027; 85055; 86592; 86703; 86850; 86900; 86901; A9270; G0432; J2590; J2795; J7120

== ENCOUNTER 2024-12-09 08:42 | Outpatient (CLI) | payer BC, SELFPAY ==
--- OUTSIDE RECORDS SUMMARY | 2024-12-09 08:51 | XMS_ITS | Clinical Summary ---
Author Organization [facility] [employer] Address [address] [place] [address] Care Team Providers Care Lay Out Helper Name Role Phone Unavailable Primary Care Provider Unavailabl e Source Comments [facility] [employer],non-owned Affiliates and Associated Physician Practices is amultiple site organization consisting of ambulatory clinics and hospital sitesin [place], [place], [place] and [place]. This disclosure is being madepursuant to the Care Everywhere program and may not contain all information available regarding this patient. Last updated 17.[facility] [employer] Allergies Active Allergy Reactions Criticality Noted Date Comments Sulfa Drugs Urticaria Medium 11/02/2023 Medications * Be aware that medications may not be up to date on this document. Alwaysverify current medications with the patient. Vit-DSS-Fe Fum-FA ( vitamin with iron) tablet Take 1 (one) tablet by mouth once daily Active Social History Tobacco Use Types Packs/Day Years Used Date Smoking Tobacco: Never Smokeless Tobacco: Never Tobacco Cessation:Counseling Given: Not Answered Alcohol Use Standard Drinks/Week Comments Never 0 (1 standard drink = 0.6 oz pur e alcohol) Comments No Sex and Gender Information Value Date Recorded Sex Assigned at Not on file Legal Sex Female 11:41 AM CDT Gender Identity Not on file Sexual Orientation [...] 12:09 PM CDT Height 165.1 cm (5' 5) 11/11/2023 12:0 9 PM CDT Body Mass Index 38.34 11/11/2023 12:09 PM CDT Plan of Treatment Health Maintenance Due Date Last Done Comments HIV SCREENING 2009 HEPATITIS C SCREENING 07/05/2012 DTAP/TDAP/TD VACCINES (1 - Tdap) 2013 HEPATITIS B VACCINE (1 of 3 - 19+ 3-dose series) 2013 PAP SMEAR 07/11/2015 HPV VACCINE (1 - 3-dose SCDM series) 2021 DEPRESSION SCREENING 02/24/2024 COVID-19 VACCINE (1 - 2023-2 5 season) 2024 INFLUENZA VACCINE (#1) 2024 ZOSTER VACCINE (1 of 2) 2044 HIB VACCINE Aged Out No longer eligi ble based on patient's age to complete this topic MENINGOCOCCAL (Group B) VACC INE SHARED DECISION-MAKING Aged Out No longer eligibl e based on patient's age to complete this topic MENINGOCOCCAL GROUPS A/C/Y/W VACCINE Aged Out No longer eligible b ased on patient's age to complete this topic PNEUMOCOCCAL VACCINE Aged Out No long er eligible based on patient's age to complete this topic Insurance [facility]
[2024-12-09 12:50] LABS: Hematocrit 39.8 % (37.0-47.0); Hemoglobin 12.5 g/dL (12.0-15.0); Immature Granulocyte Percent A 0.3 % (0-0.5); Lymphocytes Absolute Auto 1.55 K/mm3 (0.9-3.2); Mean Corpuscular HGB Conc 31.4 g/dl (32-36); Mean Corpuscular Hemoglobin 25.2 pg (26-34); Mean Corpuscular Volume 80.1 fl (80-100); Nucleated Red Blood Cells Absolute Auto 0.000 K/mm3 (0.0-0.012); Nucleated Red Blood Cells Perc 0.0 % (0.0-0.2); Platelet Count Result 244 k/mm3 (150-375); Red Blood Count 4.97 M/mm3 (4.2-5.4); White Blood Count 6.2 K/mm3 (4.5-10.0)
[2024-12-09 13:06] LABS: Glucose 1 Hour PP 50gm Dose 123 mg/dL
[2024-12-09 13:29] LABS: Syphilis IgG/IgM Antibody Non-Reactive (Nonreactive)
[2024-12-09 13:32] LABS: Hepatitis B Surface Antigen Negative (Negative)
[2024-12-09 13:39] LABS: HIV 1/2 Ab P24 Ag Result Negative (Negative)
[2024-12-09 13:46] LABS: Beta HCG Quantitative 83123.00 mIU/ML
[2024-12-10 06:08] LABS: Cytomegalovirus (CMV) Ab, IgG <0.60 U/mL (0.00-0.59)
[2024-12-12 12:08] LABS: Parvovirus B19, IgG 3.8 index (0.0-0.8); Parvovirus B19, IgM 0.2 index (0.0-0.8)
== END 2024-12-09 08:43 | disposition home or self-care (01) ==
LOC: ANHGOSHLAB 08:43
PROVIDERS: Visit Provider Obstetrics & Gynecology
DX: N91.2 Amenorrhea, unspecified (principal); Z20.6 Contact with and (suspected) exposure to human immunodeficiency virus [HIV]
CPT/HCPCS: 36415; 82947; 84702; 85025; 86593; 86644; 86703; 86747; 86762; 86850; 86900; 86901; 87086; 87340; G0432

== ENCOUNTER 2024-12-16 10:26 | Outpatient (CLI) | payer BC, SELFPAY ==
--- OUTSIDE RECORDS SUMMARY | 2024-12-16 10:49 | XMS_ITS | Clinical Summary ---
Author Organization [facility] [employer] Address [address] [place] [address] Care Team Providers Care Land Management Forester Name Role Phone Unavailable Primary Care Provider Unavailabl e Source Comments [facility] [employer],non-owned Affiliates and Associated Physician Practices is amultiple site organization consisting of ambulatory clinics and hospital sitesin [place], [place], [place] and [place]. This disclosure is being madepursuant to the Care Everywhere program and may not contain all information available regarding this patient. Last updated 17.[facility] [employer] Allergies Active Allergy Reactions Criticality Noted Date [...] patient's age to complete this topic Insurance [facility]
== END 2024-12-16 10:27 | disposition home or self-care (01) ==
LOC: ANHGOSHLAB 10:27
PROVIDERS: Visit Provider Obstetrics & Gynecology
DX: Z34.90 Encounter for supervision of normal pregnancy, unspecified, unspecified trimester (principal)
CPT/HCPCS: 87086